=== PATIENT | female | born 1970 | race Two or more races ===

== ENCOUNTER 2017-04-14 18:06 | Emergency (ER) | payer MEDICAID ==
[~2017-04-14] VITALS: Ht 134.6 cm; Wt 127.9 kg
[2017-04-14] MEDS ORDERED: Morphine Sulfate 2mg/ml Inj IVP ONE (18:15)
--- NOTE | 2017-04-14 18:20 | Emergency Room Report ---
History of Present Illness General Chief Complaint: Dyspnea/Respdistress Source: Patient Present Illness HPI Patient presents with chest pain. She feels it is substernal. Radiate somewhat towards her back. It started yesterday. Somewhat pleuritic. She denies any productive cough. Has dyspnea on exertion. Has risk factors of hypertension and diabetes. She does not smoke. She did not take any medication for this pain. Pain 5/10, pressure. She is under a lot of stress at this time. She has asked her MD for medicine for stress and he has stated he can't help. No SI or HI. She is not being treated with antihypertensives. No fevers, NVD, dysuria, rashes, joint pain. Slight headache. Allergies: Coded Allergies: No Known Allergies (Unverified , 04/14/17) Patient History Past Medical History: see triage record Social History: Denies: smoking Social History Narrative with family Reviewed Nursing Documentation: PMH: Agreed, PSxH: Agreed Nursing Documentation-PMH Hx Diabetes: Yes Review of Systems All Other Systems: negative except mentioned in HPI Physical Exam Vital Signs Date Time Temp Pulse Resp B/P Pulse Ox O2 Delivery O2 Flow Rate FiO2 04/14/17 18:09 98.6 94 17 185/150 98 Room Air Sp02 EP Interpretation: reviewed, normal General Appearance: well appearing, no apparent distress, GCS 15 Head: normocephalic Eyes: bilateral eye PERRL, bilateral eye normal inspection ENT: moist mucus membranes Neck: supple Respiratory: lungs clear, normal breath sounds Cardiovascular #1: regular rate, rhythm Cardiovascular #2: 2+ radial (R) Gastrointestinal: normal inspection, normal bowel sounds, non tender, no mass, non-distended Musculoskeletal: back normal, gait/station normal, normal range of motion Neurologic: alert, oriented x3, grossly normal Psychiatric: depressed affect - tearful Skin: normal inspection, warm/dry Medical Decision Making Diagnostic Impression: Primary Impression: Chest pain Qualified Codes: R07.9 - Chest pain, unspecified Additional Impressions: Dyspnea Qualified Codes: R06.00 - Dyspnea, unspecified Depression Qualified Codes: F32.9 - Major depressive disorder, single episode, unspecified Labile hypertension ER Course Patient presents with chest pain shortness of breath. Risk factors of diabetes and hypertension. We need to exclude acute myocardial infarction, acute coronary syndrome. In addition to that an x-ray will be obtained to exclude a pulmonary infection. No wheezes at this time. Patient is under stress. The patient will be given aspirin and a small dose of morphine. Cardiac observation be undertaken. Initial BP quite high. EKG unremarkable. CXR normal. Labs with normal troponin, slight leukocytosis, elevated glucose. Patient improved with treatment. Initially, I was going to give clonidine, but BP improved without any direct treatment. Discussed need for re-eval by PMD. Patient stable for outpatient and treatment. Laboratory Tests Test 04/14/17 18:30 04/14/17 19:07 White Blood Count 13.8 K/UL (4.8-10.8) H Red Blood Count 4.31 M/UL (4.20-5.40) Hemoglobin 10.6 G/DL (12.0-16.0) L Hematocrit 32.8 % (37.0-47.0) L Mean Corpuscular Volume 76 FL (80-99) L Mean Corpuscular Hemoglobin 24.5 PG (27.0-31.0) L Mean Corpuscular Hemoglobin Concent 32.3 G/DL (32.0-36.0) Red Cell Distribution Width 14.9 % (11.6-14.8) H Platelet Count 502 K/UL (150-450) H Mean Platelet Volume 5.7 FL (6.5-10.1) L Neutrophils (%) (Auto) 71.6 % (45.0-75.0) Lymphocytes (%) (Auto) 20.8 % (20.0-45.0) Monocytes (%) (Auto) 5.4 % (1.0-10.0) Eosinophils (%) (Auto) 1.7 % (0.0-3.0) Basophils (%) (Auto) 0.6 % (0.0-2.0) Sodium Level 139 mEQ/L (135-145) Potassium Level 3.8 mEQ/L (3.4-4.9) Chloride Level 98 mEQ/L (98-107) Carbon Dioxide Level 24 mEQ/L (20-30) Anion Gap 17 (5-15) H Blood Urea Nitrogen 7 mg/dL (7-23) Creatinine 0.6 mg/dL (0.5-0.9) Estimate Glomerular Filtration Rate > 60 mL/min (>60) Glucose Level 253 mg/dL (74-106) H Calcium Level 9.2 mg/dL (8.6-10.2) Total Bilirubin < 0.2 mg/dL (0.0-1.2) Aspartate Amino Transferase (AST) 24 U/L (5-40) Alanine Aminotransferase (ALT) 17 U/L (3-33) Alkaline Phosphatase 129 U/L (35-104) H Total Creatine Kinase 59 U/L (26-140) Troponin I < 0.30 ng/mL (<=0.30) Pro-B-Type Natriuretic Peptide 42 pg/mL (0-125) Total Protein 7.9 g/dL (6.6-8.7) Albumin 4.4 g/dL (3.5-5.2) Globulin 3.5 g/dL Albumin/Globulin Ratio 1.2 (1.0-2.7) Urine Color Pale yellow Urine Appearance Slightly cloudy Urine pH 6.5 (4.5-8.0) Urine Specific [place] 1.010 (1.005-1.035) Urine Protein 3+ (NEGATIVE) H Urine Glucose (UA) Negative (NEGATIVE) Urine Ketones Negative (NEGATIVE) Urine Occult Blood Negative (NEGATIVE) Urine Nitrite Negative (NEGATIVE) Urine Bilirubin Negative (NEGATIVE) Urine Urobilinogen Normal MG/DL (0.0-1.0) Urine Leukocyte Esterase Negative (NEGATIVE) Urine RBC 0 /HPF (0 - 2) Urine WBC 0-2 /HPF (0 - 2) Urine Squamous Epithelial Cells Many /LPF (NONE/OCC) H Urine Bacteria Occasional /HPF (NONE) EKG Diagnostic Results Rate: normal Rhythm: NSR ST Segments: no acute changes Rhythm Strip Diag. Results EP Interpretation: yes Rhythm: NSR, no PVC's, no ectopy Chest X-Ray Diagnostic Results Chest X-Ray Diagnostic Results : Chest X-Ray Ordered: Yes # of Views/Limited/Complete: 1 View Indication: Chest Pain EP Interpretation: Yes Interpretation: no consolidation, no effusion, no pneumothorax, no acute cardiopulmonary disease Impression: No acute disease Interpreting ER Provider: signed Hardeep Vizcaino MD Last Vital Signs Date Time Temp Pulse Resp B/P Pulse Ox O2 Delivery O2 Flow Rate FiO2 04/14/17 21:56 98.6 87 21 147/101 99 Room Air Status: improved Disposition: HOME, SELF-CARE Condition: Improved Scripts Ibuprofen* (MOTRIN*) 600 Mg Tablet 600 MG ORAL Q6H Y for For Pain, #20 TAB Prov: Hardeep Vizcaino M.D. 04/14/17 Lorazepam* (ATIVAN*) 0.5 Mg Tablet 0.5 MG ORAL THREE TIMES A DAY Y for anxiety/dyspnea, #6 TAB Prov: Hardeep Vizcaino M.D. 04/14/17 Lisinopril (LISINOPRIL*) 5 Mg Tablet 5 MG ORAL DAILY, #30 TAB Prov: Hardeep Vizcaino M.D. 04/14/17 Hardeep Vizcaino M.D. Apr 14, 2017 18:20
[2017-04-14] MEDS ORDERED: FORTAMET500 MG PO (18:24)
[2017-04-14] MEDS ORDERED: FORTAMET1000 MG PO (18:24)
[2017-04-14] MEDS ORDERED: GLYBURIDE5 MG PO (18:24)
[2017-04-14 18:31] VITALS: BP 224/130
[2017-04-14 18:50] LABS: BASOPHILS % (AUTO) 0.6 % (0.0-2.0); EOSINOPHILS % (AUTO) 1.7 % (0.0-3.0); LYMPHOCYTES % (AUTO) 20.8 % (20.0-45.0); MEAN CORPUSCULAR HEMOGLOBIN 24.5 PG (27.0-31.0); MEAN CORPUSCULAR HGB CONC 32.3 G/DL (32.0-36.0); MEAN CORPUSCULAR VOLUME 76 FL (80-99); MEAN PLATELET VOLUME 5.7 FL (6.5-10.1); MONOCYTES % (AUTO) 5.4 % (1.0-10.0); NEUTROPHILS % (AUTO) 71.6 % (45.0-75.0); PLATELET COUNT 502 K/UL (150-450); RED BLOOD COUNT 4.31 M/UL (4.20-5.40); RED CELL DISTRIBUTION WIDTH 14.9 % (11.6-14.8); WHITE BLOOD COUNT 13.8 K/UL (4.8-10.8)
[2017-04-14] MEDS ORDERED: cloNIDine 0.2mg Tab ORAL ONE (19:00)
[2017-04-14 19:06] LABS: TROPONIN I < 0.30 ng/mL (<=0.30)
[2017-04-14 19:08] VITALS: BP 166/63
[2017-04-14 19:08] LABS: ALANINE AMINOTRANSFERASE 17 U/L (3-33); ALBUMIN/GLOBULIN RATIO 1.2 (1.0-2.7); ANION GAP 17 (5-15); ASPARTATE AMINO TRANSFERASE 24 U/L (5-40); CALCIUM 9.2 mg/dL (8.6-10.2); CARBON DIOXIDE 24 mEQ/L (20-30); CHLORIDE 98 mEQ/L (98-107); CREATININE 0.6 mg/dL (0.5-0.9); GLOMERULAR FILTRATION RATE > 60 mL/min (>60); HEMOLYSIS 2; POTASSIUM 3.8 mEQ/L (3.4-4.9); SODIUM 139 mEQ/L (135-145); TOTAL PROTEIN 7.9 g/dL (6.6-8.7)
[2017-04-14 19:29] LABS: APPEARANCE,URINE SLIGHTLY CLOUDY; KETONES,URINE NEGATIVE (NEGATIVE); LEUKOCYTE ESTERASE ,URINE NEGATIVE (NEGATIVE); NITRITE,URINE NEGATIVE (NEGATIVE); PH,URINE 6.5 (4.5-8.0); PROTEIN,URINE 3+ (NEGATIVE); UROBILINOGEN,URINE NORMAL MG/DL (0.0-1.0)
[2017-04-14 19:34] LABS: BACTERIA,URINE OCCASIONAL /HPF; RBC,URINE 0 /HPF (0 - 2); SQUAMOUS EPITHELIAL CELL,UR MANY /LPF (NONE/OCC); WBC,URINE 0-2 /HPF (0 - 2)
[2017-04-14 21:36] VITALS: BP 147/101
[2017-04-14] MEDS ORDERED: LISINOPRIL5 MG ORAL (21:45)
[2017-04-14] MEDS ORDERED: ATIVAN0.5 MG ORAL (21:45)
[2017-04-14] MEDS ORDERED: IBUPROFEN600 MG ORAL (21:45)
[2017-04-14 21:56] VITALS: BP 147/101
--- NOTE | 2017-04-15 09:50 | Diagnostic Imaging Report ---
Indication: Chest pain Technique: Continuous helical transaxial imaging of the chest was obtained from the thoracic inlet to the upper abdomen. No intravenous contrast was administered. Coronal 2-D reformats were also obtained. Total Dose length Product (DLP): [address] Dose Index Volume (CTDIvol): 30 mGy Comparison: none Findings: There is some limitation due to body habitus. Image quality is somewhat degraded. Trace calcification of aorta demonstrated. Cardiomegaly is present. Lungs are clear. The mediastinum is grossly unremarkable. Small hiatal hernia is present. The liver is probably low in attenuation. There is considerable artifact. Cholecystectomy clips noted. Mild, marginal vertebral endplate spurs noted in the lower thoracic spine. Impression: Limited evaluation due to body habitus. No acute findings in the chest identified. Status post cholecystectomy. Probable fatty liver. The CT scanner at [facility] is accredited by the [employer] and the scans are performed using dose optimization techniques as appropriate to a performed exam including Automatic Exposure control.
--- NOTE | 2017-04-16 08:44 | Diagnostic Imaging Report ---
Indication: Chest pain Comparison: None A single view chest radiograph was obtained. Findings: No definite infiltrate or pulmonary vascular congestion identified. The heart is enlarged. The bones are osteopenic. Impression: No acute disease
--- NOTE | 2017-04-18 21:23 | Cardiology Report ---
APPROVED REPORT EKG Measurement Heart [id number] Normal sinus rhythm Normal ECG
== END 2017-04-14 21:56 | disposition home or self-care (01) ==
LOC: EMR 20:37
DX: R07.9 Chest pain, unspecified (principal); R06.00 Dyspnea, unspecified; F32.9 Major depressive disorder, single episode, unspecified; I10 Essential (primary) hypertension; E11.9 Type 2 diabetes mellitus without complications; Z90.49 Acquired absence of other specified parts of digestive tract; K76.0 Fatty (change of) liver, not elsewhere classified; K44.9 Diaphragmatic hernia without obstruction or gangrene; I51.7 Cardiomegaly
CPT/HCPCS: 36415; 71010; 71250; 80053; 81003; 82550; 82962; 83880; 84484; 85025; 93005; 96374; 96375; 99284; J2270; J2405

== ENCOUNTER 2018-02-10 12:12 | Inpatient (IN) | payer MEDICAID ==
[~2018-02-10] VITALS: Ht 152.4 cm; Wt 129.7 kg
[~2018-02-10 12:12] MED LIST: ATIVAN0.5 MG ORAL; FORTAMET1000 MG PO; FORTAMET500 MG PO; GLYBURIDE5 MG PO; IBUPROFEN600 MG ORAL; LISINOPRIL5 MG ORAL
[2018-02-10 12:45] VITALS: BP 144/77
[2018-02-10] MEDS ORDERED: Isovue-300 100ml vial INJ PRN (13:00)
[2018-02-10 13:01] LABS: BASOPHILS % (AUTO) 1.9 % (0.0-2.0); EOSINOPHILS % (AUTO) 0.6 % (0.0-3.0); HEMATOCRIT 34.6 % (37.0-47.0); HEMOGLOBIN 9.8 G/DL (12.0-16.0); LYMPHOCYTES % (AUTO) 24.2 % (20.0-45.0); MEAN CORPUSCULAR VOLUME 70 FL (80-99); MONOCYTES % (AUTO) 4.7 % (1.0-10.0); NEUTROPHILS % (AUTO) 68.8 % (45.0-75.0); PLATELET COUNT 335 K/UL (150-450); RED BLOOD COUNT 4.91 M/UL (4.20-5.40); RED CELL DISTRIBUTION WIDTH 18.5 % (11.6-14.8); WHITE BLOOD COUNT 8.5 K/UL (4.8-10.8)
[2018-02-10 13:24] LABS: ANION GAP 6 mmol/L (5-15); BLOOD UREA NITROGEN 7 mg/dL (7-18); CARBON DIOXIDE 26 MMOL/L (21-32); CHLORIDE 106 MMOL/L (98-107); CREATININE 0.8 MG/DL (0.55-1.30); POTASSIUM 3.8 MMOL/L (3.5-5.1); SODIUM 138 MMOL/L (136-145)
[2018-02-10 13:28] LABS: ALANINE AMINOTRANSFERASE 22 U/L (12-78); ALBUMIN 3.7 G/DL (3.4-5.0); ALKALINE PHOSPHATASE 81 U/L (46-116); ASPARTATE AMINO TRANSFERASE 18 U/L (15-37); BILIRUBIN,TOTAL 0.6 MG/DL (0.2-1.0)
[2018-02-10] MEDS ORDERED: Morphine Sulfate 4mg/ml Inj IVP ONE ×2 (13:30→16:00)
[2018-02-10 13:32] LABS: APPEARANCE,URINE CLEAR; BILIRUBIN, URINE NEGATIVE (NEGATIVE); COLOR,URINE PALE YELLOW; GLUCOSE, URINE (UA) 2+ (NEGATIVE); KETONES,URINE NEGATIVE (NEGATIVE); LEUKOCYTE ESTERASE ,URINE NEGATIVE (NEGATIVE); NITRITE,URINE NEGATIVE (NEGATIVE); PH,URINE 8 (4.5-8.0); PROTEIN,URINE 2+ (NEGATIVE); UROBILINOGEN,URINE NORMAL MG/DL (0.0-1.0)
--- NOTE | 2018-02-10 14:25 | Emergency Room Report ---
History of Present Illness General Chief Complaint: Abdominal Pain Source: Patient (Daria Gallagher DO) Present Illness HPI This patient complains of abdominal pain in her right lower abdomen. She states that the pain started last night has become more progressive and worse. She has had nausea but no vomiting. She denies fever or chills. She denies dysuria or hematuria. She has no other complaints. (Daria Gallagher DO) Allergies: Coded Allergies: No Known Allergies (Unverified , 04/14/17) Patient History Past Medical History: see triage record, DM Social History: Denies: smoking, alcohol use, drug use Reviewed Nursing Documentation: PMH: Agreed; PSxH: Agreed (Daria Gallagher DO) Nursing Documentation-PMH Past Medical History: No History, Except For Hx Diabetes: Yes (Daria Gallagher DO) Review of Systems All Other Systems: negative except mentioned in HPI (Daria Gallagher DO) Physical Exam Vital Signs Date Time Temp Pulse Resp B/P (MAP) Pulse Ox O2 Delivery O2 Flow Rate FiO2 02/10/18 12:18 95 22 144/77 95 Room Air 02/10/18 12:45 98.8 98.8 Sp02 EP Interpretation: reviewed, normal General Appearance: no apparent distress, alert, GCS 15, non-toxic Head: normocephalic, atraumatic Eyes: bilateral eye normal inspection, bilateral eye PERRL ENT: hearing grossly normal, normal pharynx, no angioedema, normal voice Neck: full range of motion, supple/symm/no masses Respiratory: chest non-tender, lungs clear, normal breath sounds, speaking full sentences Cardiovascular #1: regular rate, rhythm, no edema Gastrointestinal: normal bowel sounds, soft, non-distended, no guarding, no rebound, tenderness - TTP in the RLQ Rectal: deferred Musculoskeletal: back normal, gait/station normal, normal range of motion, non- tender Neurologic: alert, oriented x3, responsive, motor strength/tone normal, sensory intact, speech normal Psychiatric: judgement/insight normal, memory normal, mood/affect normal, no suicidal/homicidal ideation Skin: normal color, no rash, warm/dry, well hydrated (Daria Gallagher DO) Medical Decision Making Diagnostic Impression: Primary Impression: Appendicitis ER Course This patient has appendicitis. The patient is admitted for emergency surgery and surgical treatment by general surgery. The patient did remain stable here in the emergency department. She is admitted to the medical surgical floor. Laboratory Tests Test 02/10/18 12:40 02/10/18 13:00 White Blood Count 8.5 K/UL (4.8-10.8) Red Blood Count 4.91 M/UL (4.20-5.40) Hemoglobin 9.8 G/DL (12.0-16.0) L Hematocrit 34.6 % (37.0-47.0) L Mean Corpuscular Volume 70 FL (80-99) L Mean Corpuscular Hemoglobin 19.9 PG (27.0-31.0) L Mean Corpuscular Hemoglobin Concent 28.2 G/DL (32.0-36.0) L Red Cell Distribution Width 18.5 % (11.6-14.8) H Platelet Count 335 K/UL (150-450) Mean Platelet Volume 7.3 FL (6.5-10.1) Neutrophils (%) (Auto) 68.8 % (45.0-75.0) Lymphocytes (%) (Auto) 24.2 % (20.0-45.0) Monocytes (%) (Auto) 4.7 % (1.0-10.0) Eosinophils (%) (Auto) 0.6 % (0.0-3.0) Basophils (%) (Auto) 1.9 % (0.0-2.0) Sodium Level 138 MMOL/L (136-145) Potassium Level 3.8 MMOL/L (3.5-5.1) Chloride Level 106 MMOL/L (98-107) Carbon Dioxide Level 26 MMOL/L (21-32) Anion Gap 6 mmol/L (5-15) Blood Urea Nitrogen 7 mg/dL (7-18) Creatinine 0.8 MG/DL (0.55-1.30) Estimate Glomerular Filtration Rate > 60 mL/min (>60) Glucose Level 89 MG/DL (74-106) Calcium Level 9.0 MG/DL (8.5-10.1) Total Bilirubin 0.6 MG/DL (0.2-1.0) Aspartate Amino Transferase (AST) 18 U/L (15-37) Alanine Aminotransferase (ALT) 22 U/L (12-78) Alkaline Phosphatase 81 U/L (46-116) Total Protein 7.5 G/DL (6.4-8.2) Albumin 3.7 G/DL (3.4-5.0) Globulin 3.8 g/dL Albumin/Globulin Ratio 1.0 (1.0-2.7) Lipase 100 U/L (73-393) Urine Color Pale yellow Urine Appearance Clear Urine pH 8 (4.5-8.0) Urine Specific [place] 1.015 (1.005-1.035) Urine Protein 2+ (NEGATIVE) H Urine Glucose (UA) 2+ (NEGATIVE) H Urine Ketones Negative (NEGATIVE) Urine Occult Blood Negative (NEGATIVE) Urine Nitrite Negative (NEGATIVE) Urine Bilirubin Negative (NEGATIVE) Urine Urobilinogen Normal MG/DL (0.0-1.0) Urine Leukocyte Esterase Negative (NEGATIVE) Urine RBC 0-2 /HPF (0 - 2) Urine WBC 0-2 /HPF (0 - 2) Urine Squamous Epithelial Cells Many /LPF (NONE/OCC) H Urine Bacteria Occasional /HPF (NONE) Urine HCG, Qualitative Negative (NEGATIVE) (Daria Gallagher DO) ER Course Please refer to the initial note for the history exam and presentation Patient was pending CT imaging at this time required repeat doses of pain medication CT report gives findings of concerning early appendicitis including focal inflammatory stranding around the appendix Patient is provided with IV antibiotics IV fluids Gen. surgery is contacted Patient has been nothing by mouth since last night and requires further inpatient care Labs Test 02/10/18 12:40 02/10/18 13:00 White Blood Count 8.5 K/UL (4.8-10.8) Red Blood Count 4.91 M/UL (4.20-5.40) Hemoglobin 9.8 G/DL (12.0-16.0) Hematocrit 34.6 % (37.0-47.0) Mean Corpuscular Volume 70 FL (80-99) Mean Corpuscular Hemoglobin 19.9 PG (27.0-31.0) Mean Corpuscular Hemoglobin Concent 28.2 G/DL (32.0-36.0) Red Cell Distribution Width 18.5 % (11.6-14.8) Platelet Count 335 K/UL (150-450) Mean Platelet Volume 7.3 FL (6.5-10.1) Neutrophils (%) (Auto) 68.8 % (45.0-75.0) Lymphocytes (%) (Auto) 24.2 % (20.0-45.0) Monocytes (%) (Auto) 4.7 % (1.0-10.0) Eosinophils (%) (Auto) 0.6 % (0.0-3.0) Basophils (%) (Auto) 1.9 % (0.0-2.0) Sodium Level 138 MMOL/L (136-145) Potassium Level 3.8 MMOL/L (3.5-5.1) Chloride Level 106 MMOL/L (98-107) Carbon Dioxide Level 26 MMOL/L (21-32) Anion Gap 6 mmol/L (5-15) Blood Urea Nitrogen 7 mg/dL (7-18) Creatinine 0.8 MG/DL (0.55-1.30) Estimat Glomerular Filtration Rate > 60 mL/min (>60) Glucose Level 89 MG/DL (74-106) Calcium Level 9.0 MG/DL (8.5-10.1) Total Bilirubin 0.6 MG/DL (0.2-1.0) Aspartate Amino Transf (AST/SGOT) 18 U/L (15-37) Alanine Aminotransferase (ALT/SGPT) 22 U/L (12-78) Alkaline Phosphatase 81 U/L (46-116) Total Protein 7.5 G/DL (6.4-8.2) Albumin 3.7 G/DL (3.4-5.0) Globulin 3.8 g/dL Albumin/Globulin Ratio 1.0 (1.0-2.7) Lipase 100 U/L (73-393) Urine Color Pale yellow Urine Appearance Clear Urine pH 8 (4.5-8.0) Urine Specific [place] 1.015 (1.005-1.035) Urine Protein 2+ (NEGATIVE) Urine Glucose (UA) 2+ (NEGATIVE) Urine Ketones Negative (NEGATIVE) Urine Occult Blood Negative (NEGATIVE) Urine Nitrite Negative (NEGATIVE) Urine Bilirubin Negative (NEGATIVE) Urine Urobilinogen Normal MG/DL (0.0-1.0) Urine Leukocyte Esterase Negative (NEGATIVE) Urine RBC 0-2 /HPF (0 - 2) Urine WBC 0-2 /HPF (0 - 2) Urine Squamous Epithelial Cells Many /LPF (NONE/OCC) Urine Bacteria Occasional /HPF (NONE) Urine HCG, Qualitative Negative (NEGATIVE) (Sara Pelayo DO) Rhythm Strip Diag. Results EP Interpretation: yes Rate: 77 Rhythm: NSR, no PVC's, no ectopy (Sara Pelayo DO) CT/MRI/US Diagnostic Results CT/MRI/US Diagnostic Results : Imaging Test Ordered: CT abd/pelvis Impression Inflammatory stranding surrounding the tip of the appendix which is enlarged to approximately 10 mm. Findings are suggestive of an early/tip appendicitis as further detailed above. Please note the appendix courses midline and the tip is located above the bladder. Correlate for suprapubic tenderness. No evidence of associated bowel obstruction, perforation or abscess formation. Inflammatory change adjacent to the superior aspect of the bladder likely secondary to the above-described appendiceal inflammation. Correlate with urinalysis to exclude the possibility of a concurrent cystitis. Mild cardiomegaly. Probable hepatic steatosis. Status post cholecystectomy. (Daria Gallagher DO) CT/MRI/US Diagnostic Results : Impression CT abdomen pelvisIMPRESSION: Inflammatory stranding surrounding the tip of the appendix which is enlarged to approximately 10 mm. Findings are suggestive of an early/tip appendicitis as further detailed above. Please note the appendix courses midline and the tip is located above the bladder. Correlate for suprapubic tenderness. No evidence of associated bowel obstruction, perforation or abscess formation. Inflammatory change adjacent to the superior aspect of the bladder likely secondary to the above-described appendiceal inflammation. Correlate with urinalysis to exclude the possibility of a concurrent cystitis. Mild cardiomegaly. Probable hepatic steatosis. Status post cholecystectomy. (Sara Pelayo DO) Last Vital Signs Date Time Temp Pulse Resp B/P (MAP) Pulse Ox O2 Delivery O2 Flow Rate FiO2 02/10/18 13:34 98.8 02/10/18 12:45 22 144/77 95 Room Air 02/10/18 12:18 95 (Daria Gallagher DO) Status: improved (Sara Pelayo DO) Disposition: ADMITTED INPATIENT Condition: Serious Referrals: [facility],REFERRING (PCP) Daria Gallagher DO Feb 10, 2018 14:25 Sara Pelayo DO Feb 10, 2018 17:16
--- NOTE | 2018-02-10 16:27 | Diagnostic Imaging Report ---
Indication: Abdominal pain Technique: CT of the abdomen and pelvis utilizing automated exposure control with intravenous contrast. Venous scanning performed. Axial, sagittal and coronal reformats presented. CT dose: Total DLP 1027.46 mGycm; CTDI vol 19.75 mGy Comparison: None Findings: There are mild dependent atelectatic changes noted in the lung bases. Heart is enlarged. No pericardial effusion. Probable hepatic steatosis. Liver contour appears smooth. No focal hepatic mass lesion is appreciated on this single phase study. The patient is noted to be status post cholecystectomy. No appreciable biliary ductal dilatation. Hepatic veins and portal veins appear patent. Spleen, adrenal glands and pancreas are unremarkable. The kidneys enhance symmetrically. There is no evidence of urinary tract stone or hydronephrosis bilaterally. The uterus is unremarkable in appearance. Some inflammatory stranding is noted adjacent to the superior aspect of the bladder. There is focal inflammatory stranding surrounding the appendix, most pronounced adjacent to the tip of the appendix which sits in the midline lower abdomen just superior to the bladder (series 5 image #29; series 6 image [id number]). The tip of the appendix is enlarged, measuring up to 10 mm in diameter. The base is more normal in caliber. There may be a small appendicolith in the distal appendix. There is no evidence of associated bowel obstruction, adjacent fluid collection or evidence of free intraperitoneal air suggests perforation. No pathologically enlarged lymphadenopathy. Abdominal aorta normal in caliber. There are mild degenerative changes of the spine. No acute osseous abnormality is seen. There is a tiny fat-containing umbilical hernia. There is no free intraperitoneal air or fluid. IMPRESSION: Inflammatory stranding surrounding the tip of the appendix which is enlarged to approximately 10 mm. Findings are suggestive of an early/tip appendicitis as further detailed above. Please note the appendix courses midline and the tip is located above the bladder. Correlate for suprapubic tenderness. No evidence of associated bowel obstruction, perforation or abscess formation. Inflammatory change adjacent to the superior aspect of the bladder likely secondary to the above-described appendiceal inflammation. Correlate with urinalysis to exclude the possibility of a concurrent cystitis. Mild cardiomegaly. Probable hepatic steatosis. Status post cholecystectomy. The CT scanner at [facility] is accredited by the [employer] and the scans are performed using protocols designed to limit radiation exposure to as low as reasonably achievable to attain images of sufficient resolution adequate for diagnostic evaluation.
[2018-02-10] MEDS ORDERED: Morphine Sulfate 10mg/ml Inj IVP ONE (17:15)
[2018-02-10] MEDS ORDERED: ACETAMINOPHEN325 M1 ORAL (17:27)
[2018-02-10] MEDS ORDERED: METFORMIN HCL850 M1 ORAL (17:27)
[2018-02-10] MEDS ORDERED: METHOCARBAMOL750 MG ORAL (17:27)
[2018-02-10] MEDS ORDERED: Midazolam 2mg/2ml Inj ONE (17:58)
[2018-02-10] MEDS ORDERED: fentaNYL 100 mcg/2 mL IV ONE (17:59)
[2018-02-10] MEDS ORDERED: Bupivacaine 0.25% Inj 30ml INJ ONE (18:03)
[2018-02-10] MEDS ORDERED: Bacitracin 50000 Units Vial ONE (18:03)
[2018-02-10] MEDS ORDERED: Propofol 200mg/20ml IV ONE ×3 (18:04→19:38)
[2018-02-10] MEDS ORDERED: Sodium Chloride 10ml vial INJ ONE (18:04)
[2018-02-10] MEDS ORDERED: Lidocaine 1% MPF 10mg/ml 5ml ONE ×2 (18:04→19:44)
[2018-02-10] MEDS ORDERED: Succinylcholine 20mg/ml 10ml vial ONE (18:18)
--- NOTE | 2018-02-10 18:18 | Pre-Procedure Note/Attestation ---
Pre-Procedure Note/Attestation Complete Prior to Procedure Planned Procedure: not applicable Procedure Narrative: Laparoscopic appendectomy possible open appendectomy Indications for Procedure Pre-Operative Diagnosis: Acute Appendicitis Attestation I attest that I discussed the nature of the procedure; its benefits; risks and complications; and alternatives (and the risks and benefits of such alternatives ), prior to the procedure, with the patient (or the patient's legal sales and service representative). I attest that, if there was a reasonable possibility of needing a blood transfusion, the patient (or the patient's legal sales and service representative) was given the [facility] standardized written summary, pursuant to the Kimo Trish Blood Safety Act ([place] Health and Safety Code # 1645, as amended). I attest that I re-evaluated the patient just prior to the surgery and that there has been no change in the patient's H&P, except as documented below: Dante Huitron MD Feb 10, 2018 18:18
[2018-02-10] MEDS ORDERED: NS Irrig 1000ml ONE (18:30)
[2018-02-10] MEDS ORDERED: LR 1000ml ONE (18:30)
[2018-02-10] MEDS ORDERED: Sterile Water Irrig 1000ml IRRIG ONE (18:30)
--- NOTE | 2018-02-10 19:00 | History and Physical Report ---
DATE OF ADMISSION: 02/10/2018 PREOPERATIVE CONSULTATION CONSULTING PHYSICIAN: Dante Huitron M.D. REQUESTING PHYSICIAN: Dr. Pelayo in the emergency room. REASON FOR CONSULTATION: Abdominal pain. HISTORY OF PRESENT ILLNESS: This is a 47-year-old blood female who presented to emergency room complaining of abdominal pain since yesterday. The pain is located basically on the lower abdomen and has been associated with nausea and vomiting. She denied any fever. She has had a mild cough and she complains of some mild dysuria. She denies any previous history of similar pain. PAST MEDICAL HISTORY: She denies allergies, asthma, cardiac and renal diseases. She has a history of diabetes and hypertension. Surgeries include laparoscopy and cholecystectomy. MEDICATIONS: Please see the medicine reconciliation form. SOCIAL HISTORY: The patient is a 47-year-old, female, who is single, mother of 4 children, unemployed and denies smoking and drinking. REVIEW OF SYSTEMS: Noncontributory. PHYSICAL EXAMINATION: GENERAL: The patient appeared to be a well-developed, well-nourished, morbidly obese, 47-year-old female, lying on the gurney, complaining of abdominal pain. HEENT: Head is normocephalic and atraumatic. Eyes, pupils equal, round, and reactive to light. Mouth is clear. NECK: There is no palpable thyromegaly or adenopathy. CHEST: Clear to auscultation and percussion. HEART: There is no gallop or murmur. S1 and S2 are within normal limits. ABDOMEN: Obese and pendulous, soft with tenderness mainly in the lower abdomen, more pronounced at the right lower quadrant. GENITAL: Deferred. EXTREMITIES: Within normal limits. LABORATORY AND DIAGNOSTIC DATA: CBC has shown a WBC of 8500 with normal differential. Chemistry is within normal limits, even the blood glucose is 89. Urine is normal. CT scan of the abdomen has been interpreted as acute appendicitis. ASSESSMENT: Acute appendicitis. PLAN: After rehydration, the patient will undergo a laparoscopy appendectomy and possible open appendectomy. The risks and benefits have been explained to her. She understood and granted a consent. Dante Huitron M.D. DR: CRISTO JOB#: [id number] CC: MIKEY
[2018-02-10] MEDS ORDERED: Zemuron 50mg/5ml Inj IV ONE (19:09)
[2018-02-10] MEDS ORDERED: Piperacillin/Tazobactam 3.375 GM in D5W 110 ML IVPB ONE (19:30)
[2018-02-10] MEDS ORDERED: Neostigmine 1mg/ml 10ml Inj ONE (19:38)
[2018-02-10] MEDS ORDERED: Glycopyrrolate 0.2mg/ml 1ml Vial ONE (19:38)
[2018-02-10] MEDS ORDERED: Metoprolol 5mg/5ml Inj ONE (19:38)
--- NOTE | 2018-02-10 19:51 | Brief Operative Note ---
Immediate Post Operative Note Operative Note Pre-op Diagnosis: Acute Appendicitis Procedure: Lap Appy Post-op Diagnosis: acute appy Surgeon: MD Jaden [employer] Laborer: none Anesthesiologist: Dr. Anguiano Anesthesia: general Specimen: yes Complications: none Condition: stable Fluids: per anesthesialogist Estimated Blood Loss: minimal Drains: none Implant(s) used?: No Dante Huitron MD Feb 10, 2018 19:51
[2018-02-10] MEDS ORDERED: fentaNYL 100 mcg/2 mL IV PRN (19:55)
[2018-02-10] MEDS ORDERED: LR 1000ml 1,000 ML IVLG SCH (20:00)
[2018-02-10] MEDS ORDERED: Meperidine 50mg/ml Inj(FOR RIGORS ONLY) IVP ONE (20:00)
[2018-02-10] MEDS ORDERED: Ketorolac 30mg Inj IV PRN (20:00)
[2018-02-10 20:20] VITALS: BP_SYST 123; BP_SYST 144; BP_DIAS 72; BP_DIAS 77
--- NOTE | 2018-02-10 20:28 | Anethesia Preoperative Eval ---
Anesthesia Pre-op PMH/ROS General Date of Evaluation: Feb 10, 2018 Time of Evaluation: 18:30 Anesthesiologist: Leon ASA Score: ASA 3 Mallampati Score Class I : Soft palate, uvula, fauces, pillars visible Class II: Soft palate, uvula, fauces visible Class III: Soft palate, base of uvula visible Class IV: Only hard plate visible Mallampati Classification: Class IV Surgeon: Elana Diagnosis: Acute appendicitis Surgical Procedure: Lap Appy Allergies: Coded Allergies: No Known Allergies (Unverified , 04/14/17) Past Medical History Cardiovascular: Reports: HTN; Denies: CAD, NM, valve dz, arrhythmia, other Pulmonary: Denies: asthma, COPD, MICHAEL, other Gastrointestinal/Genitourinary: Denies: GERD, CRI, ESRD, other Neurologic/Psychiatric: Denies: dementia, CVA, depression/anxiety, TIA, other Endocrine: Reports: DM; Denies: hypothyroidism, steroids, other HEENT: Denies: cataract (L), cataract (R), glaucoma, [place] (L), [place] (R), other Hematology/Immune: Denies: anemia, DVT, bleeding disorder, other Musculoskeletal/Integumentary: Denies: OA, RA, DJD, DDD, edema, other Other: obesity PMH Narrative: HTN, DM, morbid obesity PSxH Narrative: Cholecystectomy Anesthesia Pre-op Phys. Exam Physician Exam Last Vital Signs Date Time Temp Pulse Resp B/P (MAP) Pulse Ox O2 Delivery O2 Flow Rate FiO2 02/10/18 17:23 98.8 02/10/18 12:45 22 144/77 95 Room Air 02/10/18 12:18 95 Constitutional: NAD Neurologic: CN 2-12 intact Cardiovascular: RRR, no M/R/G Respiratory: CTA Gastrointestinal: S/NT/ND Airway Exam Mallampati Score: Class IV MO: full ROM: full Teeth: intact Anesthesia Pre-op A/P Labs Hematology Test 02/10/18 12:40 White Blood Count 8.5 K/UL (4.8-10.8) Red Blood Count 4.91 M/UL (4.20-5.40) Hemoglobin 9.8 G/DL (12.0-16.0) L Hematocrit 34.6 % (37.0-47.0) L Mean Corpuscular Volume 70 FL (80-99) L Mean Corpuscular Hemoglobin 19.9 PG (27.0-31.0) L Mean Corpuscular Hemoglobin Concent 28.2 G/DL (32.0-36.0) L Red Cell Distribution Width 18.5 % (11.6-14.8) H Platelet Count 335 K/UL (150-450) Mean Platelet Volume 7.3 FL (6.5-10.1) Neutrophils (%) (Auto) 68.8 % (45.0-75.0) Lymphocytes (%) (Auto) 24.2 % (20.0-45.0) Monocytes (%) (Auto) 4.7 % (1.0-10.0) Eosinophils (%) (Auto) 0.6 % (0.0-3.0) Basophils (%) (Auto) 1.9 % (0.0-2.0) Chemistry Test 02/10/18 12:40 Sodium Level 138 MMOL/L (136-145) Potassium Level 3.8 MMOL/L (3.5-5.1) Chloride Level 106 MMOL/L (98-107) Carbon Dioxide Level 26 MMOL/L (21-32) Anion Gap 6 mmol/L (5-15) Blood Urea Nitrogen 7 mg/dL (7-18) Creatinine 0.8 MG/DL (0.55-1.30) Estimat Glomerular Filtration Rate > 60 mL/min (>60) Glucose Level 89 MG/DL (74-106) Calcium Level 9.0 MG/DL (8.5-10.1) Total Bilirubin 0.6 MG/DL (0.2-1.0) Aspartate Amino Transf (AST/SGOT) 18 U/L (15-37) Alanine Aminotransferase (ALT/SGPT) 22 U/L (12-78) Alkaline Phosphatase 81 U/L (46-116) Total Protein 7.5 G/DL (6.4-8.2) Albumin 3.7 G/DL (3.4-5.0) Globulin 3.8 g/dL Albumin/Globulin Ratio 1.0 (1.0-2.7) Lipase 100 U/L (73-393) Urine Test Test 02/10/18 13:00 Urine HCG, Qualitative Negative (NEGATIVE) Risk Assessment & Plan Assessment: Acute appendicitis in a morbidly obese, airway class female Plan: MILAN Procious scope vs fiberoptic intubation Status Change Before Surgery: Yes Pre-Antibiotics Drug: Zosyn Given Within 1 Hr of Incision: Yes Time Given: 19:00 Kimo Quintero MD Feb 10, 2018 20:28
--- NOTE | 2018-02-10 20:37 | Immediate Post-Op Evaluation ---
Immediate Post-Op Evalulation Immediate Post-Op Evalulation Procedure: Lap appy Date of Evaluation: Feb 10, 2018 Time of Evaluation: 20:35 IV Fluids: 1000 Blood Pressure Systolic: 122 Blood Pressure Diastolic: 75 Pulse Rate: 104 Respiratory Rate: 22 O2 Sat by Pulse Oximetry: 100 Temperature (Fahrenheit): 99.3 Pain Score (1-10): 0 Nausea: No Vomiting: No Complications No complications. Stayed with patient in the OR until tidal volumes increased to 400...then extubated and taken to the ICU for observation overnight. Patient Status: awake, patent, extubated, none Hydration Status: adequate Drug: Zoxyn Given Within 1 Hr of Incision: Yes Time Given: 19:00 Kimo Quintero MD Feb 10, 2018 20:37
--- NOTE | 2018-02-10 21:15 | Operative Note - Dictated ---
DATE OF OPERATION: 02/10/2018 PREOPERATIVE DIAGNOSIS: Acute appendicitis. POSTOPERATIVE DIAGNOSIS: Acute appendicitis. OPERATION: Laparoscopic appendectomy. COMPLICATION: None. SURGEON: Dante Huitron M.D. INTERMODAL TRUCK DRIVER: None. ANESTHESIOLOGIST: Dr. Quintero. ANESTHESIA: General with endotracheal tube. INDICATION: This is a 47-year-old female, morbidly obese, presented to emergency room complaining of abdominal pain since yesterday. The pain was located at the lower abdomen associated with nausea and vomiting. Physical examination showed tenderness at the lower abdomen which was more pronounced at right lower quadrant. CBC showed normal WBC with normal differential. CAT scan of the abdomen was interpreted as acute appendicitis. DESCRIPTION OF PROCEDURE: The patient was placed supine on the operating table and after general anesthesia with endotracheal tube, the abdomen was properly prepped and draped. A small incision was given above the umbilicus through which a Veress needle was introduced into the intraperitoneal cavity. This cavity was insufflated up to 15 mmHg and then the Veress needle was removed and a 5 mm trocar was placed in the intraperitoneal cavity through the incision above the umbilicus. Laparoscope and camera was introduced into the intraperitoneal cavity through the trocar above the umbilicus. Under direct vision, a 5 mm trocar was placed at the suprapubic area and a 12 mm trocar was placed at the left lower quadrant of the abdomen. Initially, a rapid exploration was performed which showed extensive adhesion at the upper abdomen due to the open cholecystectomy that she has had, so I was unable to see the diaphragm, the liver, or even the stomach. In the lower abdomen, the bowels were covered with omentum. The exploration of the right lower quadrant cavity was performed. The cecum was identified and then the appendix was identified which was extending towards the pelvis and it had adhesion to the pelvis. The appendix and mesoappendix was isolated and exposed. The mesoappendix was ligated and transected with the PAPI stapler and then the appendix was ligated and transected with another PAPI stapler at the base. The appendix was removed from the intraperitoneal cavity through the incision in the left lower quadrant of the abdomen with the help of the Endo pouch. After removal of the appendix, the intra-abdominal cavity especially the right paracolic gutter and the pelvis was copiously irrigated with antibiotic solution. Another exploration was performed and there was no complication or bleeding. The trocars were removed under direct vision. The incisions were infiltrated with total of 30 mL of Marcaine 0.25%. The subcutaneous tissue was approximated with 4-0 chromic and the skin incisions were approximated with running subcuticular suture of 4-0 chromic. The patient tolerated the procedure very well and was transferred to recovery room intubated. Dr. Quintero stated that the patient was not breathing very well and he did not wish to extubate the patient although she was completely awake. Condition of the patient at the end of procedure was stable. The sponge and needle count correct. ESTIMATED BLOOD LOSS: 5 mL. Dante Huitron M.D. DR: Ofelia JOB#: [id number] CC: MIKEY
[2018-02-10] MEDS ORDERED: Acetaminophen 650 MG SUPP RECTAL PRN (21:21)
[2018-02-10] MEDS ORDERED: Metoclopramide 10mg/2ml Inj IVP PRN (21:23)
[2018-02-10] MEDS: D5 1/2NS w/KCl 20mEq 1,000 ML IV SCH (22:01)
[2018-02-11] MEDS: Morphine Sulfate 4mg/ml Inj IVP PRN ×2 (02:50→08:56)
[2018-02-11] MEDS: Piperacillin/Tazobactam 4.5 GM in NS 110 ML IVPB SCH ×2 (02:54→12:05)
[2018-02-11 06:33] LABS: BASOPHILS % (AUTO) 0.4 % (0.0-2.0); EOSINOPHILS % (AUTO) 0.3 % (0.0-3.0); HEMATOCRIT 30.9 % (37.0-47.0); HEMOGLOBIN 9.2 G/DL (12.0-16.0); LYMPHOCYTES % (AUTO) 13.2 % (20.0-45.0); MEAN CORPUSCULAR VOLUME 74 FL (80-99); MONOCYTES % (AUTO) 4.8 % (1.0-10.0); NEUTROPHILS % (AUTO) 81.3 % (45.0-75.0); PLATELET COUNT 357 K/UL (150-450); RED BLOOD COUNT 4.18 M/UL (4.20-5.40); WHITE BLOOD COUNT 13.5 K/UL (4.8-10.8)
[2018-02-11 06:39] LABS: ANION GAP 9 mmol/L (5-15); BLOOD UREA NITROGEN 5 mg/dL (7-18); CALCIUM 8.1 MG/DL (8.5-10.1); CARBON DIOXIDE 27 MMOL/L (21-32); CHLORIDE 100 MMOL/L (98-107); CREATININE 0.7 MG/DL (0.55-1.30); SODIUM 136 MMOL/L (136-145)
[2018-02-11] MEDS: D5 1/2NS w/KCl 20mEq 1,000 ML IV SCH (07:23)
[2018-02-11] MEDS ORDERED: Enoxaparin 40mg Inj SUBQ SCH (09:00)
[2018-02-11] MEDS ORDERED: Acetaminophen 650 MG SUPP RECTAL PRN (13:30)
[2018-02-11] MEDS: Piperacillin/Tazobactam 4.5 GM in D5W 110 ML IVPB SCH ×2 (13:50→22:55)
--- NOTE | 2018-02-11 14:36 | General Surgery Progress Note ---
General Surgery-Progress Note Subjective Procedure Performed Lap Appy Symptoms: passing flatus Objective Last 24 Hour Vital Signs Date Time Temp Pulse Resp B/P (MAP) Pulse Ox O2 Delivery O2 Flow Rate FiO2 02/11/18 13:50 99.3 02/11/18 12:00 98 02/11/18 09:26 99.3 02/11/18 08:56 99.3 02/11/18 08:00 98 02/11/18 04:00 92 02/10/18 21:32 Non-Rebreather 15.0 100 02/10/18 21:32 100 Non-Rebreather 15.0 100 02/10/18 21:32 107 23 Non-Rebreather 15.0 100 02/10/18 20:37 210.7 104 22 100 02/10/18 20:25 97 02/10/18 20:20 98.9 22 123/72 95 Non-Rebreather 100 98.9 02/10/18 17:23 98.8 02/10/18 17:10 98.8 22 172/73 95 Room Air 209.8 02/10/18 15:53 98.8 I&O Intake and Output 02/10/18 02/11/18 19:00 07:00 Intake Total 0 ml 1082.5 ml Output Total 1050 ml Balance 0 ml 32.5 ml Intake Oral 0 ml 0 ml IV Total 1082.5 ml Output Urine Total 1050 ml Dressing: dry Drains: none Respiratory: clear Abdomen: soft, non-tender, present bowel sounds Extremities: no tenderness Laboratory Tests Test 02/11/18 05:00 White Blood Count 13.5 K/UL (4.8-10.8) #H Red Blood Count 4.18 M/UL (4.20-5.40) L Hemoglobin 9.2 G/DL (12.0-16.0) L Hematocrit 30.9 % (37.0-47.0) L Mean Corpuscular Volume 74 FL (80-99) L Mean Corpuscular Hemoglobin 22.1 PG (27.0-31.0) L Mean Corpuscular Hemoglobin Concent 29.9 G/DL (32.0-36.0) L Red Cell Distribution Width 15.0 % (11.6-14.8) H Platelet Count 357 K/UL (150-450) Mean Platelet Volume 5.3 FL (6.5-10.1) L Neutrophils (%) (Auto) 81.3 % (45.0-75.0) H Lymphocytes (%) (Auto) 13.2 % (20.0-45.0) L Monocytes (%) (Auto) 4.8 % (1.0-10.0) Eosinophils (%) (Auto) 0.3 % (0.0-3.0) Basophils (%) (Auto) 0.4 % (0.0-2.0) Sodium Level 136 MMOL/L (136-145) Potassium Level 4.0 MMOL/L (3.5-5.1) Chloride Level 100 MMOL/L (98-107) Carbon Dioxide Level 27 MMOL/L (21-32) Anion Gap 9 mmol/L (5-15) Blood Urea Nitrogen 5 mg/dL (7-18) L Creatinine 0.7 MG/DL (0.55-1.30) Estimat Glomerular Filtration Rate > 60 mL/min (>60) Glucose Level 314 MG/DL (74-106) #H Calcium Level 8.1 MG/DL (8.5-10.1) L Assessment Post-op Diagnosis acute appy Plan Additional Comments continue current treatment Dante Huitron MD Feb 11, 2018 14:36
[2018-02-11] MEDS ORDERED: traMADol 50mg tab ORAL PRN (14:45)
--- NOTE | 2018-02-11 14:48 | 48 Hour Post Anesthesia Eval ---
Post Anesthesia Evaluation Procedure: Lap appy Date of Evaluation: Feb 11, 2018 Time of Evaluation: 13:05 Blood Pressure Systolic: 142 0: 92 Pulse Rate: 90 Respiratory Rate: 20 Temperature (Fahrenheit): 98.2 O2 Sat by Pulse Oximetry: 92 Airway: patent Nausea: No Vomiting: No Pain Intensity: 1 Hydration Status: adequate Cardiopulmonary Status: Stable Mental Status/LOC: patient returned to baseline Follow-up Care/Observations: As per surgery Post-Anesthesia Complications: No anesthetic complication Follow-up care needed: N/A Kimo Quintero MD Feb 11, 2018 14:48
[2018-02-11 15:20] VITALS: BP 142/92
[2018-02-11] MEDS: NovoLOG Insulin Flexpen SUBQ SCH ×2 (16:29→21:09)
[2018-02-11] MEDS ORDERED: NovoLOG Insulin Flexpen SUBQ SCH (16:30)
[2018-02-11] MEDS: Docusate Sod/Senna tab ORAL SCH (17:03)
[2018-02-11 20:00] VITALS: BP 145/89
[2018-02-12] VITALS: BP 160/88
[2018-02-12] MEDS ORDERED: Morphine Sulfate 4mg/ml Inj IVP PRN (00:30)
[2018-02-12] MEDS: Morphine Sulfate 4mg/ml Inj IVP PRN ×5 (00:46→22:09)
[2018-02-12 04:00] VITALS: BP 160/85
[2018-02-12] MEDS: Piperacillin/Tazobactam 4.5 GM in D5W 110 ML IVPB SCH (05:14)
[2018-02-12] MEDS: Metoclopramide 10mg/2ml Inj IVP PRN ×2 (05:19→16:23)
[2018-02-12] MEDS: NovoLOG Insulin Flexpen SUBQ SCH ×4 (06:18→21:25)
[2018-02-12 07:48] LABS: BASOPHILS % (AUTO) 0.3 % (0.0-2.0); EOSINOPHILS % (AUTO) 1.5 % (0.0-3.0); HEMATOCRIT 29.6 % (37.0-47.0); HEMOGLOBIN 8.9 G/DL (12.0-16.0); LYMPHOCYTES % (AUTO) 12.1 % (20.0-45.0); MEAN CORPUSCULAR VOLUME 73 FL (80-99); MONOCYTES % (AUTO) 5.3 % (1.0-10.0); NEUTROPHILS % (AUTO) 80.7 % (45.0-75.0); PLATELET COUNT 422 K/UL (150-450); RED BLOOD COUNT 4.04 M/UL (4.20-5.40); RED CELL DISTRIBUTION WIDTH 14.7 % (11.6-14.8); WHITE BLOOD COUNT 12.3 K/UL (4.8-10.8)
[2018-02-12 07:52] LABS: ANION GAP 6 mmol/L (5-15); BLOOD UREA NITROGEN 5 mg/dL (7-18); CALCIUM 8.3 MG/DL (8.5-10.1); CARBON DIOXIDE 30 MMOL/L (21-32); CHLORIDE 102 MMOL/L (98-107); CREATININE 0.6 MG/DL (0.55-1.30); POTASSIUM 3.7 MMOL/L (3.5-5.1); SODIUM 138 MMOL/L (136-145)
[2018-02-12 08:00] VITALS: BP 129/56
[2018-02-12] MEDS: Docusate Sod/Senna tab ORAL SCH ×2 (08:47→18:47)
[2018-02-12] MEDS: Enoxaparin 40mg Inj SUBQ SCH (09:08)
[2018-02-12 12:00] VITALS: BP 143/85
--- NOTE | 2018-02-12 13:13 | General Surgery Progress Note ---
General Surgery-Progress Note Subjective Procedure Performed Lap Appy Additional Comments c/o head ache Objective Last 24 Hour Vital Signs Date Time Temp Pulse Resp B/P (MAP) Pulse Ox O2 Delivery O2 Flow Rate FiO2 02/12/18 12:00 98.8 94 20 143/85 98 Room Air 98.8 02/12/18 10:36 98.6 02/12/18 10:06 98.6 02/12/18 08:00 97 02/12/18 08:00 98.1 95 20 129/56 98 98.1 02/12/18 04:00 98.6 93 20 160/85 97 98.6 02/12/18 04:00 100 02/12/18 00:00 97.9 92 20 160/88 94 97.9 02/12/18 00:00 101 02/11/18 20:00 98.6 88 18 145/89 94 Nasal Cannula 2.0 98.6 02/11/18 20:00 89 02/11/18 19:58 Non-Rebreather 15.0 100 02/11/18 19:58 100 Non-Rebreather 15.0 100 02/11/18 16:27 85 02/11/18 15:20 98.2 90 20 142/92 95 Nasal Cannula 2.0 98.2 02/11/18 15:08 208.8 90 20 92 02/11/18 14:49 99.3 02/11/18 13:50 99.3 I&O Intake and Output 02/11/18 02/12/18 19:00 07:00 Intake Total 555.0 ml 450 ml Output Total 180 ml Balance 375.0 ml 450 ml Intake Oral 400 ml IV Total 155.0 ml 450 ml Output Urine Total 180 ml # Voids 1 Dressing: dry Drains: none Abdomen: soft, non-tender, absent bowel sounds Extremities: no tenderness Laboratory Tests Test 02/12/18 07:20 White Blood Count 12.3 K/UL (4.8-10.8) H Red Blood Count 4.04 M/UL (4.20-5.40) L Hemoglobin 8.9 G/DL (12.0-16.0) L Hematocrit 29.6 % (37.0-47.0) L Mean Corpuscular Volume 73 FL (80-99) L Mean Corpuscular Hemoglobin 22.2 PG (27.0-31.0) L Mean Corpuscular Hemoglobin Concent 30.2 G/DL (32.0-36.0) L Red Cell Distribution Width 14.7 % (11.6-14.8) Platelet Count 422 K/UL (150-450) Mean Platelet Volume 5.7 FL (6.5-10.1) L Neutrophils (%) (Auto) 80.7 % (45.0-75.0) H Lymphocytes (%) (Auto) 12.1 % (20.0-45.0) L Monocytes (%) (Auto) 5.3 % (1.0-10.0) Eosinophils (%) (Auto) 1.5 % (0.0-3.0) Basophils (%) (Auto) 0.3 % (0.0-2.0) Sodium Level 138 MMOL/L (136-145) Potassium Level 3.7 MMOL/L (3.5-5.1) Chloride Level 102 MMOL/L (98-107) Carbon Dioxide Level 30 MMOL/L (21-32) Anion Gap 6 mmol/L (5-15) Blood Urea Nitrogen 5 mg/dL (7-18) L Creatinine 0.6 MG/DL (0.55-1.30) Estimat Glomerular Filtration Rate > 60 mL/min (>60) Glucose Level 241 MG/DL (74-106) H Calcium Level 8.3 MG/DL (8.5-10.1) L Assessment Post-op Diagnosis acute appy Plan Additional Comments continue current treatment Dante Huitron MD Feb 12, 2018 13:13
[2018-02-12 20:00] VITALS: BP 134/74
[2018-02-12] MEDS ORDERED: Miralax 17gm pkt ORAL SCH (21:00)
[2018-02-13] VITALS: BP 155/83
[2018-02-13] MEDS: Morphine Sulfate 4mg/ml Inj IVP PRN ×2 (02:00→09:23)
[2018-02-13 04:00] VITALS: BP 158/86
[2018-02-13] MEDS: NovoLOG Insulin Flexpen SUBQ SCH ×3 (06:16→17:28)
[2018-02-13 07:48] LABS: BASOPHILS % (AUTO) 0.4 % (0.0-2.0); EOSINOPHILS % (AUTO) 1.7 % (0.0-3.0); HEMATOCRIT 31.1 % (37.0-47.0); HEMOGLOBIN 9.4 G/DL (12.0-16.0); LYMPHOCYTES % (AUTO) 13.6 % (20.0-45.0); MEAN CORPUSCULAR VOLUME 74 FL (80-99); MONOCYTES % (AUTO) 7.6 % (1.0-10.0); NEUTROPHILS % (AUTO) 76.7 % (45.0-75.0); PLATELET COUNT 417 K/UL (150-450); RED CELL DISTRIBUTION WIDTH 14.9 % (11.6-14.8); WHITE BLOOD COUNT 11.9 K/UL (4.8-10.8)
[2018-02-13 08:00] VITALS: BP 161/82
[2018-02-13 08:21] LABS: ANION GAP 10 mmol/L (5-15); BLOOD UREA NITROGEN 5 mg/dL (7-18); CALCIUM 8.2 MG/DL (8.5-10.1); CARBON DIOXIDE 25 MMOL/L (21-32); CHLORIDE 102 MMOL/L (98-107); CREATININE 0.5 MG/DL (0.55-1.30); POTASSIUM 3.3 MMOL/L (3.5-5.1); SODIUM 137 MMOL/L (136-145)
[2018-02-13] MEDS: Enoxaparin 40mg Inj SUBQ SCH (09:21)
[2018-02-13] MEDS: Docusate Sod/Senna tab ORAL SCH ×2 (09:22→17:27)
[2018-02-13 12:00] VITALS: BP 161/81
[2018-02-13 16:00] VITALS: BP 156/90
--- NOTE | 2018-02-13 17:05 | General Surgery Progress Note ---
General Surgery-Progress Note Subjective Procedure Performed Lap Appy Symptoms: improved, BM Objective Last 24 Hour Vital Signs Date Time Temp Pulse Resp B/P (MAP) Pulse Ox O2 Delivery O2 Flow Rate FiO2 02/13/18 16:00 97.3 96 20 156/90 94 Room Air 2.0 100 97.3 02/13/18 16:00 94 02/13/18 12:00 94 02/13/18 12:00 97.3 93 20 161/81 94 Room Air 2.0 100 97.3 02/13/18 09:53 97.7 02/13/18 09:23 97.7 02/13/18 08:00 98.2 93 20 161/82 94 Room Air 2.0 100 98.2 02/13/18 08:00 115 02/13/18 04:00 97.7 96 20 158/86 94 Room Air 97.7 02/13/18 04:00 92 02/13/18 00:00 87 02/13/18 00:00 97.9 90 20 155/83 95 Room Air 97.9 02/12/18 20:00 98.0 87 20 134/74 97 Room Air 98.0 02/12/18 20:00 89 I&O Intake and Output 02/12/18 02/13/18 19:00 07:00 Intake Total 300 ml 592 ml Balance 300 ml 592 ml IV Total 300 ml 592 ml # Voids 1 Dressing: dry Respiratory: clear Abdomen: soft, non-tender, present bowel sounds Extremities: no tenderness Laboratory Tests Test 02/13/18 06:15 White Blood Count 11.9 K/UL (4.8-10.8) H Red Blood Count 4.20 M/UL (4.20-5.40) Hemoglobin 9.4 G/DL (12.0-16.0) L Hematocrit 31.1 % (37.0-47.0) L Mean Corpuscular Volume 74 FL (80-99) L Mean Corpuscular Hemoglobin 22.3 PG (27.0-31.0) L Mean Corpuscular Hemoglobin Concent 30.1 G/DL (32.0-36.0) L Red Cell Distribution Width 14.9 % (11.6-14.8) H Platelet Count 417 K/UL (150-450) Mean Platelet Volume 6.1 FL (6.5-10.1) L Neutrophils (%) (Auto) 76.7 % (45.0-75.0) H Lymphocytes (%) (Auto) 13.6 % (20.0-45.0) L Monocytes (%) (Auto) 7.6 % (1.0-10.0) Eosinophils (%) (Auto) 1.7 % (0.0-3.0) Basophils (%) (Auto) 0.4 % (0.0-2.0) Sodium Level 137 MMOL/L (136-145) Potassium Level 3.3 MMOL/L (3.5-5.1) L Chloride Level 102 MMOL/L (98-107) Carbon Dioxide Level 25 MMOL/L (21-32) Anion Gap 10 mmol/L (5-15) Blood Urea Nitrogen 5 mg/dL (7-18) L Creatinine 0.5 MG/DL (0.55-1.30) L Estimat Glomerular Filtration Rate > 60 mL/min (>60) Glucose Level 222 MG/DL (74-106) H Calcium Level 8.2 MG/DL (8.5-10.1) L Assessment Post-op Diagnosis acute appy Plan Additional Comments discharge to home Dante Huitron MD Feb 13, 2018 17:05
--- NOTE | 2018-02-13 17:07 | Discharge Instructions ---
Discharge Instructions Discharge Instructions Follow up with: my office in one week Diet: 4 GM sodium (no salt added), diabetic calorie control Resume Normal Activity?: Yes Activity: as tolerated For Surgical Patients Dressing Care: other - remove dressings May shower: Yes For Congestive Heart Failure Reminder Report to your physician any weight gain of 5 pounds or more in one week. Dante Huitron MD Feb 13, 2018 17:07
--- NOTE | 2018-02-14 03:14 | Discharge Summary ---
DATE OF ADMISSION: 02/10/2018 DATE OF DISCHARGE: 02/13/2018 ADMITTING DIAGNOSIS: Acute appendicitis. DISCHARGE DIAGNOSIS: Acute appendicitis. OPERATION: Laparoscopy appendectomy. COMPLICATION: None. REASON FOR ADMISSION: This is a 47-year-old, morbidly obese, female, who presented to emergency room complaining of one-day history of abdominal pain. The pain was located at the lower abdomen and associated with nausea and vomiting. Physical examination showed a very obese abdomen with tenderness and guarding at lower abdomen. CBC on admission was 8500 with normal differential, but the CT scan was reported as acute appendicitis. HOSPITAL COURSE: The patient was admitted to hospital and immediately underwent laparoscopy appendectomy during which an acute appendicitis was encountered. Postoperative course, the patient was slow in returning the bowel function and the WBC was high. She was kept on clear liquid diet and IV antibiotic and finally the WBC returned for about 11,000 and today, she finally had a bowel movement. Physical examination showed that the chest was clear. Abdomen is very obese, but soft and nontender. At this time, she will be discharged to home to be followed in my office in 1 week. DISCHARGE MEDICATIONS: Keflex, tramadol and Cindy-Colace. DISCHARGE INSTRUCTIONS: The patient has been instructed to continue her home medication. Condition of the patient at the time of discharge improved. Followup office in 1 week. The patient has been instructed about the diet, activity and showering. Dante Huitron M.D. DR: CRISTO JOB#: [id number] CC:
[2018-02-14] MEDS ORDERED: IBUPROFEN600 MG ORAL (09:10)
[2018-02-14] MEDS ORDERED: ALBUTEROL SULF8.5 GM INH (10:11)
== END 2018-02-13 18:40 | disposition home or self-care (01) | DRG 225 ==
LOC: EMR 12:40 → EDBEDREQ 18:01 → SUR 18:10 → ICU 19:51 → 2E 02-11 12:00
PROC: 0DTJ4ZZ Resection of Appendix, Percutaneous Endoscopic Approach (ICD-10-PCS; principal; 2018-02-10 18:15)
DX: K35.80 Unspecified acute appendicitis (principal); Z68.43 Body mass index [BMI] 50.0-59.9, adult; I10 Essential (primary) hypertension; E66.01 Morbid (severe) obesity due to excess calories; E11.9 Type 2 diabetes mellitus without complications
CPT/HCPCS: 36415; 74177; 80048; 80053; 81003; 81025; 82962; 83690; 85025; 94003; 94150; 94664; 94760; 99291; C9399; J1815; J2250; J2405; J2710; J2765; J8499

== ENCOUNTER 2018-02-14 07:32 | Emergency (ER) | payer MEDICAID ==
[~2018-02-14] VITALS: Ht 162.6 cm; Wt 127.9 kg
[~2018-02-14 07:32] MED LIST changes: +ACETAMINOPHEN325 M1 ORAL; +METFORMIN HCL850 M1 ORAL; +METHOCARBAMOL750 MG ORAL
[2018-02-14] MEDS ORDERED: Albuterol ud Inhalation HHN ONE (08:00)
[2018-02-14] MEDS ORDERED: Ipratropium 0.02% Inh Soln 2.5ml UD HHN ONE (08:00)
[2018-02-14 08:07] VITALS: BP 176/99
[2018-02-14 08:31] LABS: ANION GAP 8 mmol/L (5-15); BLOOD UREA NITROGEN 3 mg/dL (7-18); CALCIUM 8.8 MG/DL (8.5-10.1); CARBON DIOXIDE 28 MMOL/L (21-32); CHLORIDE 101 MMOL/L (98-107); CREATININE 0.6 MG/DL (0.55-1.30); POTASSIUM 3.4 MMOL/L (3.5-5.1); SODIUM 137 MMOL/L (136-145)
[2018-02-14 08:34] LABS: BASOPHILS % (AUTO) 0.4 % (0.0-2.0); HEMATOCRIT 29.5 % (37.0-47.0); HEMOGLOBIN 9.1 G/DL (12.0-16.0); LYMPHOCYTES % (AUTO) 13.1 % (20.0-45.0); MEAN CORPUSCULAR VOLUME 72 FL (80-99); MONOCYTES % (AUTO) 7.7 % (1.0-10.0); NEUTROPHILS % (AUTO) 76.9 % (45.0-75.0); PLATELET COUNT 420 K/UL (150-450); RED BLOOD COUNT 4.11 M/UL (4.20-5.40); RED CELL DISTRIBUTION WIDTH 14.7 % (11.6-14.8); WHITE BLOOD COUNT 12.8 K/UL (4.8-10.8)
[2018-02-14 08:46] LABS: ALANINE AMINOTRANSFERASE 35 U/L (12-78); ALBUMIN 2.9 G/DL (3.4-5.0); ALBUMIN/GLOBULIN RATIO 0.6 (1.0-2.7); ALKALINE PHOSPHATASE 129 U/L (46-116); ASPARTATE AMINO TRANSFERASE 17 U/L (15-37); BILIRUBIN,TOTAL 0.5 MG/DL (0.2-1.0); CKMB < 0.5 NG/ML (0.0-3.6); CREATINE KINASE 64 U/L (26-308)
[2018-02-14 08:57] LABS: INR 0.9 (0.9-1.1)
[2018-02-14] MEDS ORDERED: IBUPROFEN600 MG ORAL (09:10)
[2018-02-14 09:35] VITALS: BP 124/82
--- NOTE | 2018-02-14 10:02 | Diagnostic Imaging Report ---
Indication: Shortness of breath Technique: One view of the chest Comparison: 04/14/2017 Findings: Body habitus limits evaluation. Faint bilateral basilar opacities and apparent central interstitial prominence is probably related to body habitus. The heart is upper limits normal in size. No definite acute infiltrates, effusions, or congestion Impression: No definite acute process
[2018-02-14] MEDS ORDERED: ALBUTEROL SULF8.5 GM INH (10:11)
--- NOTE | 2018-02-14 10:22 | Emergency Room Report ---
History of Present Illness General Chief Complaint: Upper Respiratory Illness Present Illness HPI Patient is a 47-year-old female who presented after increased difficulty breathing. Patient recently had the abdominal surgery for appendicitis. Patient reported having increased cough. Patient had prior history of asthma. She denies any new leg pain or swelling. Patient states that she had not been taking her antibiotics as previously prescribed. Patient denies any severe shortness of breath. She denies any fever. Allergies: Coded Allergies: No Known Allergies (Unverified , 04/14/17) Patient History Past Medical History: see triage record Last Menstrual Period: 1 week ago Reviewed Nursing Documentation: PMH: Agreed; PSxH: Agreed Nursing Documentation-PMH Hx Diabetes: Yes Hx Gastrointestinal Problems: Yes - APPENDECTOMY,January Review of Systems All Other Systems: negative except mentioned in HPI Physical Exam Vital Signs Date Time Temp Pulse Resp B/P (MAP) Pulse Ox O2 Delivery O2 Flow Rate FiO2 02/14/18 07:37 98.8 101 18 176/99 93 Room Air 98.8 02/14/18 08:01 21 Sp02 EP Interpretation: reviewed, normal General Appearance: normal inspection, well appearing, no apparent distress, alert, GCS 15, obese Head: atraumatic ENT: normal ENT inspection, hearing grossly normal, normal voice Neck: normal inspection, full range of motion, supple, no bony tend Respiratory: normal inspection, no respiratory distress, no retraction, wheezing Cardiovascular #1: regular rate, rhythm, no edema Gastrointestinal: normal inspection, normal bowel sounds, non tender, soft, no guarding, no hernia, other - incisions c/d/i Genitourinary: no CVA tenderness Musculoskeletal: normal inspection, back normal, normal range of motion Neurologic: normal inspection, alert, oriented x3, responsive, support team assoc III-XII nml as tested, speech normal Psychiatric: normal inspection, judgement/insight normal, mood/affect normal Skin: normal inspection, normal color, no rash Medical Decision Making Diagnostic Impression: Primary Impression: Bronchitis ER Course Patient presented for shortness of breath. Differential diagnosis included but was not limited to bronchitis, pneumonia, pulmonary embolism, pericarditis, asthma, foreign body.Because of complexity of patient's case laboratory testing and imaging studies were ordered. The patient noted have a minimally elevated white blood count. The patient was advised to take her antibiotics which she had not filled yet. Chest x-ray one view read by radiology showed normal cardiac size without evident infiltrate. Patient was given breathing treatment with improvement in her symptoms. The patient was advised to follow-up for recheck with primary care physician.The patient is advised to follow up with primary care doctor in 1-2 days. Patient is advised to return if any worsening condition or if any changes in status that are concerning. This report is dictated with [employer] shoe folder software which may occasionally lead to discrepancies related to use of this software. Labs Test 02/14/18 08:00 White Blood Count 12.8 K/UL (4.8-10.8) Red Blood Count 4.11 M/UL (4.20-5.40) Hemoglobin 9.1 G/DL (12.0-16.0) Hematocrit 29.5 % (37.0-47.0) Mean Corpuscular Volume 72 FL (80-99) Mean Corpuscular Hemoglobin 22.1 PG (27.0-31.0) Mean Corpuscular Hemoglobin Concent 30.7 G/DL (32.0-36.0) Red Cell Distribution Width 14.7 % (11.6-14.8) Platelet Count 420 K/UL (150-450) Mean Platelet Volume 5.8 FL (6.5-10.1) Neutrophils (%) (Auto) 76.9 % (45.0-75.0) Lymphocytes (%) (Auto) 13.1 % (20.0-45.0) Monocytes (%) (Auto) 7.7 % (1.0-10.0) Eosinophils (%) (Auto) 2.0 % (0.0-3.0) Basophils (%) (Auto) 0.4 % (0.0-2.0) Prothrombin Time 9.9 SEC (9.30-11.50) Prothromb Time International Ratio 0.9 (0.9-1.1) Activated Partial Thromboplast Time 29 SEC (23-33) Sodium Level 137 MMOL/L (136-145) Potassium Level 3.4 MMOL/L (3.5-5.1) Chloride Level 101 MMOL/L (98-107) Carbon Dioxide Level 28 MMOL/L (21-32) Anion Gap 8 mmol/L (5-15) Blood Urea Nitrogen 3 mg/dL (7-18) Creatinine 0.6 MG/DL (0.55-1.30) Estimat Glomerular Filtration Rate > 60 mL/min (>60) Glucose Level 187 MG/DL (74-106) Calcium Level 8.8 MG/DL (8.5-10.1) Total Bilirubin 0.5 MG/DL (0.2-1.0) Aspartate Amino Transf (AST/SGOT) 17 U/L (15-37) Alanine Aminotransferase (ALT/SGPT) 35 U/L (12-78) Alkaline Phosphatase 129 U/L (46-116) Total Creatine Kinase 64 U/L (26-308) Creatine Kinase MB < 0.5 NG/ML (0.0-3.6) Creatine Kinase MB Relative Index 0.7 Troponin I 0.017 ng/mL (0.000-0.056) Pro-B-Type Natriuretic Peptide 315 pg/mL (0-125) Total Protein 7.7 G/DL (6.4-8.2) Albumin 2.9 G/DL (3.4-5.0) Globulin 4.8 g/dL Albumin/Globulin Ratio 0.6 (1.0-2.7) Lipase 74 U/L (73-393) Last Vital Signs Date Time Temp Pulse Resp B/P (MAP) Pulse Ox O2 Delivery O2 Flow Rate FiO2 02/14/18 09:36 98.8 02/14/18 09:35 94 13 124/82 98 Room Air 02/14/18 08:04 21 Status: improved Disposition: HOME, SELF-CARE Condition: Stable Scripts Albuterol Sulfate* (ALBUTEROL SULFATE MDI*) 8.5 Gm Hfa.aer.ad 2 PUFF INH Q4H, #1 INH 0 Refills Prov: Florentino Wesley MD 02/14/18 Patient Instructions: Acute Bronchitis Florentino Wesley MD Feb 14, 2018 10:21
[2018-02-14 10:25] VITALS: BP 140/85
== END 2018-02-14 10:25 | disposition home or self-care (01) ==
LOC: EMR 08:19
DX: J40 Bronchitis, not specified as acute or chronic (principal); E11.9 Type 2 diabetes mellitus without complications; Z90.49 Acquired absence of other specified parts of digestive tract
CPT/HCPCS: 36415; 71045; 80053; 82550; 82553; 83690; 83880; 84484; 85025; 85610; 85730; 93005; 94640; 94664; 99283

== ENCOUNTER 2018-11-04 14:14 | Emergency (ER) | payer MEDICAID ==
[~2018-11-04] VITALS: Ht 157.5 cm; Wt 123.4 kg
[~2018-11-04 14:14] MED LIST changes: +ALBUTEROL SULF8.5 GM INH
[2018-11-04] MEDS ORDERED: LISINOPRIL20 MG ORAL (14:24)
--- NOTE | 2018-11-04 14:33 | NUR ---
ED Nurse Note: Pt fell x 2 weeks ago. Complaining of pain 06/04 rt knee. Non radiating. A + O x4. Ambulatory.
--- NOTE | 2018-11-04 14:52 | Emergency Room Report ---
History of Present Illness General Chief Complaint: Lower Extremity Injury Source: Patient Present Illness HPI 48-year-old female patient presents ER complaining of times 2 weeks. Reports pain symptoms began status post slip and fall while she was cleaning the floors. Reports she was not dizzy or feeling pain prior to fall. Denies hitting her head or loss consciousness. Reports pain with inhalation. Reports been taking Tylenol with mild relief of pain symptoms. Denies other aggravating or relieving factors. Reports spent day yesterday [place] around [place] exacerbate pain symptoms. Allergies: Coded Allergies: No Known Allergies (Unverified , 04/14/17) Patient History Past Medical History: see triage record Now: No Reviewed Nursing Documentation: PMH: Agreed; PSxH: Agreed Nursing Documentation-PMH Past Medical History: No History, Except For Hx Hypertension: Yes Hx Diabetes: Yes Hx Gastrointestinal Problems: Yes - APPENDECTOMY,January Review of Systems All Other Systems: negative except mentioned in HPI Physical Exam Vital Signs Date Time Temp Pulse Resp B/P (MAP) Pulse Ox O2 Delivery O2 Flow Rate FiO2 11/04/18 14:18 97.9 101 18 159/95 97 Room Air Sp02 EP Interpretation: reviewed, normal General Appearance: well appearing, no apparent distress, alert, GCS 15, non- toxic Head: normocephalic, atraumatic Eyes: bilateral eye normal inspection, bilateral eye PERRL Neck: full range of motion Respiratory: lungs clear, normal breath sounds, no rhonchi, no respiratory distress, no accessory muscle use, no wheezing, speaking full sentences Cardiovascular #1: regular rate, rhythm, no edema Cardiovascular #2: 2+ dorsalis pedis (R), 2+ dorsalis pedis (L) Musculoskeletal: back normal, digits/nails normal, gait/station normal, normal range of motion, no calf tenderness, pelvis stable, Gregory's Sign negative, other - No laxity with varus or valgus stress, negative anterior and posterior drawer test Psychiatric: mood/affect normal Skin: no rash, other - Varicose veins Medical Decision Making PA Attestation Dr. Ernst is my supervising Physician whom patient management has been discussed with. Diagnostic Impression: Primary Impression: Knee sprain ER Course Pt. presents to the ED c/o right knee pain times 2 weeks. Ddx considered but are not limited to fracture, sprain, strain, contusion, dislocation. No erythema, no warmth to touch, no fever, nontoxic appearing, low suspicion for septic joint. Soft compartments, no pulselessness, no pallor, no paresthesias, low suspicion for compartment syndrome at this time. Vital signs: are WNL, pt. is afebrile Ordered X-ray and pain medication. ER COURSE Provided with pain medication. An X-ray of the right knee shows no acute fracture per the preliminary reading, varicose veins noted per the radiologist. Advised patient to follow-up with primary care provider and discuss referral to general surgeon vascular surgeon for varicose veins. Likely knee sprain causing pain symptoms. Provided with contact information for general surgeon. Joel wrap was applied to the right knee. Was checked afterwards by me showing good alignment and support with distal neurovascular functioning intact. Cane provided. Patient instructed on RICE method: rest, ice, compression, elevation. Patient instructed on rest, ice and heat. Patient instructed to be WBAT Contact information for orthopedic urgent care provided, follow-up with urgent care if unable to followup with primary care provider and get referral to manufacturing specialist. Followup with primary care provider. Discuss referral to ortho/pain management/ PT as needed. Discuss further imaging with MRI/CT as needed. DISCHARGE: -Rx provided for Motrin for pain symptoms. At this time pt. is stable for d/c to home. Patient is resting comfortably, in no acute distress, nontoxic appearing, talking without difficulty. Will provide printed patient care instructions, and any necessary prescriptions. Patient instructed to follow with primary care provider in 3 - 5 days and to request further follow-up as needed. Care plan and follow up instructions have been discussed with the patient prior to discharge. Take medications as directed. Patient questions asked and answered. Patient reports understanding and agreement to treatment plan. ER precautions given, patient instructed to return to ER immediately for any new or worsening of symptoms. - Please note that this Emergency Department Report was dictated using [employer] laboratory technician technology software, occasionally this can lead to erroneous entry secondary to interpretation by the dictation equipment. Other X-Ray Diagnostic Results Other X-Ray Diagnostic Results : X-Ray ordered: Right knee # of Views/Limited Vs Complete: 3 View Indication: Pain EP Interpretation: Yes PA Xray: Interpretation reviewed, by supervising MD, and agrees with findings. Interpretation: no dislocation, no soft tissue swelling, no fractures, other - Varicose veins Impression: No acute disease AIDAN Koehler Text Vasu Singh PA-C Last Vital Signs Date Time Temp Pulse Resp B/P (MAP) Pulse Ox O2 Delivery O2 Flow Rate FiO2 11/04/18 14:18 97.9 101 18 159/95 97 Room Air Status: improved Disposition: HOME, SELF-CARE Condition: Stable Scripts Ibuprofen* (MOTRIN*) 600 Mg Tablet 600 MG ORAL Q6H PRN for For Pain, #30 TAB Prov: Santo Singh 11/04/18 Patient Instructions: Varicose Veins, Knee Sprain Additional Instructions: Patient instructed to follow up with primary care provider and discuss further referral to orthopedics/physical therapy/pain management as needed. If unable to followup with PCP, followup with orthopedic urgent care in 5-7 days , call to schedule appointment. Patient instructed on RICE method: rest, ice, compression, elevation. Follow-up with general and/or vascular surgeon for varicose veins. Patient instructed to WBAT. Take medications as directed. Patient questions asked and answered. ER precautions given, patient instructed to return to ER immediately for any new or worsening of symptoms. [facility] [address] [facility] [address] [facility], [address] [email or web address] Santo Singh Nov 04, 2018 14:52
--- NOTE | 2018-11-04 14:57 | NUR ---
ED Nurse Note: Xray at the bedside
--- NOTE | 2018-11-04 15:43 | Diagnostic Imaging Report ---
Indication: Knee pain Technique: 3 views of the right knee Comparison: None Findings: No acute fractures. No dislocations. No suprapatellar effusion. The joint spaces are preserved. The surrounding soft tissues demonstrate serpiginous structures which presumably represent varicose veins Impression: No acute process. Evidence of varicose veins
[2018-11-04] MEDS ORDERED: IBUPROFEN600 MG ORAL (15:54)
[2018-11-04 16:21] VITALS: BP 150/99
--- NOTE | 2018-11-04 16:22 | NUR ---
ER DISCHARGE NOTE: Patient is cleared to be discharged per ERMD, pt is aox4, on room air, with stable vital signs. pt was given dc and prescription instructions, pt was able to verbalize understanding, pt id band removed without complications. pt is able to ambulate with steady gait. pt took all belongings. Cane provided for pt.
== END 2018-11-04 16:22 | disposition home or self-care (01) ==
LOC: EMR 14:52
DX: S83.91XA Sprain of unspecified site of right knee, initial encounter (principal); W01.0XXA Fall on same level from slipping, tripping and stumbling without subsequent striking against object, initial encounter; Y93.E5 Activity, floor mopping and cleaning; Y92.009 Unspecified place in unspecified non-institutional (private) residence as the place of occurrence of the external cause; I10 Essential (primary) hypertension; E11.9 Type 2 diabetes mellitus without complications
CPT/HCPCS: 99283

== ENCOUNTER 2018-12-25 20:49 | Emergency (ER) | payer MEDICAID ==
[~2018-12-25] VITALS: Ht 160 cm; Wt 127.0 kg
[~2018-12-25 20:49] MED LIST changes: +LISINOPRIL20 MG ORAL
[2018-12-25] MEDS ORDERED: LORazepam Inj 2mg/ml 1ml IV ONE (21:15)
--- NOTE | 2018-12-25 21:16 | Emergency Room Report ---
History of Present Illness General Chief Complaint: Dyspnea/Respdistress Source: Patient Present Illness HPI Is a 48-year-old female with a history of high blood pressure and diabetes. She presents with chief complaint of shortness of breath. Onset was acute. Occurred about 30-40 minutes ago. Before that she was fine. No trauma. No argument. No anxiety. She felt short of breath. [place] like she can't catch her breath. [place] dizzy and lightheaded. Similar symptom last year. No history of anxiety. No calf tenderness. No history of blood clots in the family. Not on control pill. Allergies: Coded Allergies: No Known Allergies (Unverified , 12/25/18) Patient History Past Medical History: see triage record, old chart reviewed, DM, HTN Past Surgical History: other Pertinent Family History: none Social History: Denies: smoking Last Menstrual Period: 12-19-2018 Now: No Immunizations: other Reviewed Nursing Documentation: PMH: Agreed; PSxH: Agreed Nursing Documentation-PMH Hx Hypertension: Yes Hx Diabetes: Yes Hx Gastrointestinal Problems: Yes - APPENDECTOMY,January Review of Systems Eye: Denies: eye pain, blurred vision ENT: Denies: ear pain, nose congestion, throat swelling Respiratory: Reports: shortness of breath; Denies: cough Cardiovascular: Denies: chest pain, palpitations Gastrointestinal: Denies: abdominal pain, diarrhea, nausea, vomiting Musculoskeletal: Denies: back pain, joint pain Skin: Denies: rash Neurological: Denies: headache, numbness Endocrine: Denies: increased thirst, increased urine Hematologic/Lymphatic: Denies: easy bruising All Other Systems: negative except mentioned in HPI Physical Exam Vital Signs Date Time Temp Pulse Resp B/P (MAP) Pulse Ox O2 Delivery O2 Flow Rate FiO2 12/25/18 21:00 98.2 86 20 97 Room Air vitals with high blood pressure Sp02 EP Interpretation: reviewed, normal General Appearance: well appearing, no apparent distress, alert, obese Head: normocephalic, atraumatic Eyes: bilateral eye PERRL, bilateral eye EOMI ENT: hearing grossly normal, normal pharynx Neck: full range of motion, supple, no meningismus Respiratory: chest non-tender, lungs clear, normal breath sounds Cardiovascular #1: regular rate, rhythm, no murmur Gastrointestinal: normal bowel sounds, non tender, no mass, no organomegaly, no bruit, non-distended Musculoskeletal: back normal, gait/station normal, normal range of motion Psychiatric: anxious Skin: warm/dry Medical Decision Making Diagnostic Impression: Primary Impression: Panic anxiety syndrome Additional Impression: Dyspnea Qualified Codes: R06.02 - Shortness of breath ER Course She presents with acute dyspnea. She was very anxious when she came in. Blood pressure normalized after dose of Ativan. She fell better now. No evidence of ACS, PE, dissection to name a few. We'll discharge home. EKG Diagnostic Results Rate: normal Rhythm: NSR ST Segments: no acute changes Rhythm Strip Diag. Results EP Interpretation: yes Rate: 80 Rhythm: NSR, no PVC's, no ectopy Chest X-Ray Diagnostic Results Chest X-Ray Diagnostic Results : Chest X-Ray Ordered: Yes # of Views/Limited/Complete: 1 View Indication: Shortness of Breath EP Interpretation: Yes Interpretation: no consolidation, no effusion, no pneumothorax, no acute cardiopulmonary disease Impression: No acute disease Electronically Signed by: Pritesh Anne MD Last Vital Signs Date Time Temp Pulse Resp B/P (MAP) Pulse Ox O2 Delivery O2 Flow Rate FiO2 12/25/18 21:00 98.2 86 20 97 Room Air Status: improved Disposition: HOME, SELF-CARE Condition: Stable Scripts Lorazepam* (ATIVAN*) 1 Mg Tablet 1 MG ORAL THREE TIMES A DAY for anxiety, #15 TAB Prov: Pritesh Anne MD 12/25/18 Additional Instructions: Follow-up with your doctor in 7 days. Return if worse. Pritesh Anne MD December 25, 2018 21:16
--- NOTE | 2018-12-25 21:20 | NUR ---
ED Nurse Note: Pt walked in ED c/o sob x 30 min, pt states she was taking shower and all of sudden felt dizzy and had sob. no resp distress noted, pt o2sat 100% on RA, airway intact, noted pt crying and pt reports she has been under a lot of stress. pt AA&ox4, gcs=15, noted high bp 196/87, ERMD aware of pt's condition, NSR on conveyor monitor, resp even and unlabored on RA, LS =clear, will cont monitor.
[2018-12-25 21:40] VITALS: BP 190/86
--- NOTE | 2018-12-25 21:40 | NUR ---
ED Nurse Note: pt states she is unable to provide urine sample, states she can't go bathroom.
[2018-12-25 21:57] LABS: BASOPHILS % (AUTO) 0.7 % (0.0-2.0); EOSINOPHILS % (AUTO) 2.2 % (0.0-3.0); HEMATOCRIT 33.1 % (37.0-47.0); HEMOGLOBIN 10.4 G/DL (12.0-16.0); LYMPHOCYTES % (AUTO) 25.9 % (20.0-45.0); MEAN CORPUSCULAR VOLUME 76 FL (80-99); MONOCYTES % (AUTO) 5.6 % (1.0-10.0); NEUTROPHILS % (AUTO) 65.6 % (45.0-75.0); PLATELET COUNT 408 K/UL (150-450); RED BLOOD COUNT 4.36 M/UL (4.20-5.40); RED CELL DISTRIBUTION WIDTH 15.2 % (11.6-14.8); WHITE BLOOD COUNT 11.4 K/UL (4.8-10.8)
[2018-12-25 22:06] LABS: ANION GAP 9 mmol/L (5-15); BLOOD UREA NITROGEN 11 mg/dL (7-18); CALCIUM 9.5 MG/DL (8.5-10.1); CARBON DIOXIDE 29 MMOL/L (21-32); CHLORIDE 101 MMOL/L (98-107); CREATININE 0.8 MG/DL (0.55-1.30); POTASSIUM 3.9 MMOL/L (3.5-5.1); SODIUM 138 MMOL/L (136-145)
[2018-12-25 22:21] LABS: ALANINE AMINOTRANSFERASE 21 U/L (12-78); ALBUMIN 3.8 G/DL (3.4-5.0); ALBUMIN/GLOBULIN RATIO 0.9 (1.0-2.7); ALKALINE PHOSPHATASE 128 U/L (46-116); ASPARTATE AMINO TRANSFERASE 11 U/L (15-37); BILIRUBIN,TOTAL 0.2 MG/DL (0.2-1.0); CKMB 1.2 NG/ML (0.0-3.6); CREATINE KINASE 96 U/L (26-308)
[2018-12-25 22:40] VITALS: BP 155/89
[2018-12-25] MEDS ORDERED: ATIVAN1 MG ORAL (22:46)
[2018-12-25 23:07] VITALS: BP 126/87
--- NOTE | 2018-12-25 23:07 | NUR ---
ED Nurse Note: PT cleared to be d/c per ERMD, pt discharge and aftercare instruction provided w/ prescription, pt education done via discussion and handout, pt verbalized understanding and agrees with plan, pt advised to follow up with pcp or return to ed if changes in condition, pt reports feeling better after medication, pt accompanied by son and daughter, left w/ all belongings, vss, ambulatory w/ steady gait, iv d/c and dressing applied.
--- NOTE | 2018-12-26 14:55 | Diagnostic Imaging Report ---
Indication: Shortness of breath Technique: One view of the chest Comparison: 02/14/2018 Findings: Body habitus limits evaluation. The heart is enlarged. The lungs and pleural spaces are clear. Lungs appear less congested than on the previous exam Impression: Cardiomegaly. No acute process
--- NOTE | 2018-12-26 15:22 | Cardiology Report ---
APPROVED REPORT EKG Measurement Heart [id number] Normal sinus rhythm Normal ECG
== END 2018-12-25 23:07 | disposition home or self-care (01) ==
LOC: EMR 21:28
DX: F41.0 Panic disorder [episodic paroxysmal anxiety] (principal); R06.00 Dyspnea, unspecified; E11.9 Type 2 diabetes mellitus without complications; I10 Essential (primary) hypertension
CPT/HCPCS: 36415; 71045; 80053; 82550; 82553; 83880; 84484; 85025; 85379; 93005; 96361; 96374; 99284

== ENCOUNTER 2019-02-13 15:07 | Emergency (ER) | payer MEDICAID ==
[~2019-02-13] VITALS: Ht 157.5 cm; Wt 90.7 kg
[~2019-02-13 15:07] MED LIST changes: +ATIVAN1 MG ORAL
--- NOTE | 2019-02-13 15:31 | NUR ---
ED Nurse Note: PT WALKED IN TO ER TODAY FROM HOME. AOX4. PT C/O NONRADIATING UPPER CHEST PAIN, 06/04, AND SOB X YESTERDAY. 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 RR12, O2SAT 99% ON RA. NO SIGNS OF RESPIRATORY DISTRESS, RETRACTIONS, OR ACCESSORY MUSCLE USE NOTED. PT ABLE TO SPEAK IN FULL SENTENCES.
[2019-02-13 15:32] VITALS: BP 153/98
[2019-02-13] MEDS ORDERED: Albuterol ud Inhalation HHN ONE (16:00)
[2019-02-13] MEDS ORDERED: Aspirin Baby 81mg ORAL ONE (16:00)
[2019-02-13] MEDS ORDERED: Ipratropium 0.02% Inh Soln 2.5ml UD HHN ONE (16:00)
--- NOTE | 2019-02-13 16:16 | NUR ---
ED Nurse Note: XRAY AT BEDSIDE.
--- NOTE | 2019-02-13 16:16 | NUR ---
ED Nurse Note: RESPIRATORY CALLED FOR BREATHING TX.
--- NOTE | 2019-02-13 16:39 | NUR ---
ED Nurse Note: RT AT BEDSIDE FOR BREATHING TX.
--- NOTE | 2019-02-13 16:39 | Diagnostic Imaging Report ---
Indication: Shortness of breath and chest pain Technique: One view of the chest Comparison: 12/25/2018 Findings: Body habitus limits evaluation. The heart is enlarged. The lungs and pleural spaces are clear. Impression: Cardiomegaly. No acute process
[2019-02-13 16:46] VITALS: BP 144/80
[2019-02-13 16:57] LABS: BASOPHILS % (AUTO) 1.2 % (0.0-2.0); EOSINOPHILS % (AUTO) 2.2 % (0.0-3.0); HEMATOCRIT 30.1 % (37.0-47.0); HEMOGLOBIN 9.7 G/DL (12.0-16.0); LYMPHOCYTES % (AUTO) 23.3 % (20.0-45.0); MEAN CORPUSCULAR VOLUME 76 FL (80-99); NEUTROPHILS % (AUTO) 69.2 % (45.0-75.0); PLATELET COUNT 405 K/UL (150-450); RED BLOOD COUNT 3.93 M/UL (4.20-5.40); RED CELL DISTRIBUTION WIDTH 13.9 % (11.6-14.8); WHITE BLOOD COUNT 11.2 K/UL (4.8-10.8)
[2019-02-13 17:03] LABS: ANION GAP 11 mmol/L (5-15); BLOOD UREA NITROGEN 15 mg/dL (7-18); CALCIUM 8.6 MG/DL (8.5-10.1); CARBON DIOXIDE 25 MMOL/L (21-32); CHLORIDE 103 MMOL/L (98-107); CREATININE 0.7 MG/DL (0.55-1.30); POTASSIUM 3.8 MMOL/L (3.5-5.1); SODIUM 139 MMOL/L (136-145)
[2019-02-13 17:17] LABS: ALANINE AMINOTRANSFERASE 16 U/L (12-78); ALBUMIN 3.3 G/DL (3.4-5.0); ALBUMIN/GLOBULIN RATIO 0.9 (1.0-2.7); ALKALINE PHOSPHATASE 102 U/L (46-116); ASPARTATE AMINO TRANSFERASE 11 U/L (15-37); BILIRUBIN,TOTAL 0.2 MG/DL (0.2-1.0); CKMB 0.7 NG/ML (0.0-3.6); CREATINE KINASE 44 U/L (26-308)
[2019-02-13 17:33] LABS: APPEARANCE,URINE CLOUDY; BILIRUBIN, URINE NEGATIVE (NEGATIVE); GLUCOSE, URINE (UA) NEGATIVE (NEGATIVE); KETONES,URINE NEGATIVE (NEGATIVE); LEUKOCYTE ESTERASE ,URINE 2+ (NEGATIVE); NITRITE,URINE NEGATIVE (NEGATIVE); PH,URINE 6 (4.5-8.0); PROTEIN,URINE 2+ (NEGATIVE); UROBILINOGEN,URINE 1 MG/DL (0.0-1.0)
[2019-02-13 17:39] LABS: COLOR,URINE YELLOW
[2019-02-13] MEDS ORDERED: cefTRIAXone 1 GM in NS 55 ML IVPB ONE (18:00)
[2019-02-13 18:25] VITALS: BP 160/100
--- NOTE | 2019-02-13 18:25 | NUR ---
ED Nurse Note: PAIN REASSESSED AND PT DENIES ANY PAIN.
[2019-02-13 18:49] VITALS: BP 137/60
--- NOTE | 2019-02-13 19:04 | NUR ---
ED Nurse Note: REPORT GIVEN TO ELIZABETH DANIELS.
[2019-02-13] MEDS ORDERED: ALBUTEROL SULF8.5 GM INH (19:43)
[2019-02-13] MEDS ORDERED: CEPHALEXIN500 MG ORAL (19:43)
[2019-02-13 19:50] VITALS: BP 137/60
--- NOTE | 2019-02-13 19:50 | NUR ---
ER Nurse Note: Pt seen, treated, medically cleared for discharge by ERMD. Discharge instuctions and prescriptions given with repeat verbalization by pt. All orders completed per ERMD orders. Pt a&ox4, VSS, no signs of distress. Pt denies pain. ID band removed. IV removed, site clean and bandaged. Pt ambulaitory with steady gait, left with all belongings, left with own transportation.
--- NOTE | 2019-02-13 22:16 | Emergency Room Report ---
History of Present Illness General Chief Complaint: Chest Pain Source: Patient, Medical Record Present Illness HPI Patient is a 48-year-old female presented after increased chest discomfort. Patient had prior history of anxiety. She had intermittent episodes of difficulty with breathing. She had been having increased nonproductive cough. She reports having no recent fever or leg swelling. She denies any abdominal pain she had not been vomiting or having any diarrhea. She denies any exertional component to her chest pain. She denies any positional changes. She reports having prior history of diabetes. Allergies: Coded Allergies: No Known Allergies (Unverified , 12/25/18) Patient History Past Medical History: see triage record Last Menstrual Period: 02/11/19 Reviewed Nursing Documentation: PMH: Agreed; PSxH: Agreed Nursing Documentation-PMH Past Medical History: No History, Except For Hx Hypertension: Yes Hx Diabetes: Yes Hx Gastrointestinal Problems: Yes - APPENDECTOMY,January Physical Exam Vital Signs Date Time Temp Pulse Resp B/P (MAP) Pulse Ox O2 Delivery O2 Flow Rate FiO2 02/13/19 15:22 98.8 94 19 184/111 (135) 97 Room Air 02/13/19 16:30 21 Sp02 EP Interpretation: normal General Appearance: no apparent distress, alert, GCS 15, obese ENT: hearing grossly normal, normal pharynx Neck: full range of motion Respiratory: chest non-tender, no rhonchi, no respiratory distress, wheezing Cardiovascular #1: normal inspection, regular rate, rhythm, no edema Gastrointestinal: normal inspection, non tender, soft, no mass Musculoskeletal: normal inspection, back normal, digits/nails normal Neurologic: normal inspection, alert, oriented x3, responsive, entertainment & media correspondent III-XII nml as tested Skin: normal inspection, normal color, no rash Medical Decision Making Diagnostic Impression: Primary Impression: Atypical chest pain ER Course Patient presented for chest pain. Differential diagnosis include is not limited to bronchitis, pneumonia, asthma, among others.Laboratoy testing was ordered due to patient's chest discomfort. Patient was given breathing treatment with improvement. She was given IV Rocephin due to some slight urinary infection. Patient's troponin was noted to be negative. Patient appears to be stable for outpatient management and further cardiac evaluation as an outpatient. Patient given medications for respiratory symptoms. She is advised to return if any worsening condition or other concerns. Labs Test 02/13/19 16:11 02/13/19 16:34 White Blood Count 11.2 K/UL (4.8-10.8) Red Blood Count 3.93 M/UL (4.20-5.40) Hemoglobin 9.7 G/DL (12.0-16.0) Hematocrit 30.1 % (37.0-47.0) Mean Corpuscular Volume 76 FL (80-99) Mean Corpuscular Hemoglobin 24.7 PG (27.0-31.0) Mean Corpuscular Hemoglobin Concent 32.4 G/DL (32.0-36.0) Red Cell Distribution Width 13.9 % (11.6-14.8) Platelet Count 405 K/UL (150-450) Mean Platelet Volume 4.7 FL (6.5-10.1) Neutrophils (%) (Auto) 69.2 % (45.0-75.0) Lymphocytes (%) (Auto) 23.3 % (20.0-45.0) Monocytes (%) (Auto) 4.0 % (1.0-10.0) Eosinophils (%) (Auto) 2.2 % (0.0-3.0) Basophils (%) (Auto) 1.2 % (0.0-2.0) D-Dimer 0.51 mg/L FEU (0.00-0.49) Sodium Level 139 MMOL/L (136-145) Potassium Level 3.8 MMOL/L (3.5-5.1) Chloride Level 103 MMOL/L (98-107) Carbon Dioxide Level 25 MMOL/L (21-32) Anion Gap 11 mmol/L (5-15) Blood Urea Nitrogen 15 mg/dL (7-18) Creatinine 0.7 MG/DL (0.55-1.30) Estimat Glomerular Filtration Rate > 60 mL/min (>60) Glucose Level 197 MG/DL (74-106) Calcium Level 8.6 MG/DL (8.5-10.1) Total Bilirubin 0.2 MG/DL (0.2-1.0) Aspartate Amino Transf (AST/SGOT) 11 U/L (15-37) Alanine Aminotransferase (ALT/SGPT) 16 U/L (12-78) Alkaline Phosphatase 102 U/L (46-116) Total Creatine Kinase 44 U/L (26-308) Creatine Kinase MB 0.7 NG/ML (0.0-3.6) Creatine Kinase MB Relative Index 1.5 Troponin I 0.000 ng/mL (0.000-0.056) Pro-B-Type Natriuretic Peptide 255 pg/mL (0-125) Total Protein 6.9 G/DL (6.4-8.2) Albumin 3.3 G/DL (3.4-5.0) Globulin 3.6 g/dL Albumin/Globulin Ratio 0.9 (1.0-2.7) Lipase 107 U/L (73-393) Urine Color Yellow Urine Appearance Cloudy Urine pH 6 (4.5-8.0) Urine Specific [place] 1.010 (1.005-1.035) Urine Protein 2+ (NEGATIVE) Urine Glucose (UA) Negative (NEGATIVE) Urine Ketones Negative (NEGATIVE) Urine Blood 5+ (NEGATIVE) Urine Nitrite Negative (NEGATIVE) Urine Bilirubin Negative (NEGATIVE) Urine Urobilinogen 1 MG/DL (0.0-1.0) Urine Leukocyte Esterase 2+ (NEGATIVE) Urine RBC 2-4 /HPF (0 - 2) Urine WBC 5-10 /HPF (0 - 2) Urine Squamous Epithelial Cells Many /LPF (NONE/OCC) Urine Bacteria Moderate /HPF (NONE) Urine HCG, Qualitative Negative (NEGATIVE) EKG Diagnostic Results Rate: normal Rhythm: NSR ST Segments: no acute changes Last Vital Signs Date Time Temp Pulse Resp B/P (MAP) Pulse Ox O2 Delivery O2 Flow Rate FiO2 02/13/19 19:50 98.8 79 18 137/60 100 Room Air 02/13/19 16:43 21 Status: improved Disposition: HOME, SELF-CARE Condition: Stable Scripts Albuterol Sulfate* (ALBUTEROL SULFATE MDI*) 8.5 Gm Hfa.aer.ad 2 PUFF INH Q4H, #1 INH 0 Refills Prov: Florentino Wesley MD 02/13/19 Cephalexin* (KEFLEX*) 500 Mg Capsule 500 MG ORAL EVERY 6 HOURS, #28 CAP Prov: Florentino Wesley MD 02/13/19 Patient Instructions: Nonspecific Chest Pain Florentino Wesley MD Feb 13, 2019 22:16
--- NOTE | 2019-02-14 19:37 | Cardiology Report ---
APPROVED REPORT EKG Measurement Heart [id number] Normal sinus rhythm Normal ECG
== END 2019-02-13 19:50 | disposition home or self-care (01) ==
LOC: EMR 17:05
DX: R07.89 Other chest pain (principal); E11.9 Type 2 diabetes mellitus without complications; I10 Essential (primary) hypertension; Z90.49 Acquired absence of other specified parts of digestive tract
CPT/HCPCS: 36415; 71045; 80053; 81003; 81025; 82550; 82553; 83690; 83880; 84484; 85025; 85379; 87086; 93005; 94640; 94664; 96365; 99284; J0696

== ENCOUNTER 2019-10-24 03:37 | Emergency (ER) | payer MEDICAID ==
[~2019-10-24] VITALS: Ht 157.5 cm; Wt 122.5 kg
[~2019-10-24 03:37] MED LIST changes: +CEPHALEXIN500 MG ORAL
[2019-10-24] MEDS ORDERED: ATORVASTATIN CA20 MG ORAL (03:53)
[2019-10-24] MEDS ORDERED: GLIPIZIDE5 MG ORAL (03:53)
[2019-10-24] MEDS ORDERED: HYDRALAZINE HCL50 MG ORAL (03:53)
[2019-10-24 03:55] VITALS: BP 174/92
--- NOTE | 2019-10-24 03:55 | NUR ---
ED Nurse Note: Patient walked in to ED from home c/o SOB x today at 0100. As per patient, it woke up from her sleep. Not in any distress, 98% RA. Afebrile. Denies pain. Pt placed on workers compensation claims specialist. Family members at bedside.
--- NOTE | 2019-10-24 04:11 | NUR ---
ED Nurse Note: RT at bedside for breathing tx.
[2019-10-24] MEDS: Albuterol/Ipratropium 3ml neb HHN SCH ×3 (04:21→04:34)
[2019-10-24] MEDS ORDERED: ALBUTEROL SULF8.5 GM INH (05:07)
[2019-10-24] MEDS ORDERED: PREDNISONE20 MG ORAL (05:07)
[2019-10-24 05:17] VITALS: BP 174/92
--- NOTE | 2019-10-24 05:17 | NUR ---
ED Nurse Note: Pt cleared by ERMD for discharge. DC instructions was given and explained to pt and verbalized understanding of teachings. Prescription is sent electronically to the pharmacy of [facility]. All medical deviecs such as ID band removed. Pt is AAO x4, ambulatory and left with all personal belongings. Accompanied by her daughter and son.
--- NOTE | 2019-10-24 06:18 | Emergency Room Report ---
History of Present Illness General Chief Complaint: Dyspnea/Respdistress Source: Patient Present Illness HPI 49-year-old female presents ED for evaluation of shortness of breath. Woke her up from sleep. Notes chest tightness. Denies fevers or chills. Denies chest pain. Denies cough. No other aggravating relieving factors. Denies any other associated symptoms Allergies: Coded Allergies: No Known Allergies (Unverified , 12/25/18) Patient History Past Medical History: DM, HTN Past Surgical History: appy Pertinent Family History: none Social History: Denies: smoking, alcohol use, drug use Now: No Immunizations: UTD Reviewed Nursing Documentation: PMH: Agreed; PSxH: Agreed Nursing Documentation-PMH Past Medical History: No History, Except For Hx Hypertension: Yes Hx Diabetes: Yes Hx Gastrointestinal Problems: Yes - APPENDECTOMY,January Review of Systems All Other Systems: negative except mentioned in HPI Physical Exam Vital Signs Date Time Temp Pulse Resp B/P (MAP) Pulse Ox O2 Delivery O2 Flow Rate FiO2 10/24/19 03:49 98.1 90 16 174/92 (119) 98 Room Air 10/24/19 04:21 21 Sp02 EP Interpretation: reviewed, normal General Appearance: no apparent distress, alert, GCS 15, non-toxic, obese Head: normocephalic, atraumatic Eyes: bilateral eye normal inspection, bilateral eye PERRL ENT: hearing grossly normal, normal pharynx, no angioedema, normal voice Neck: full range of motion, supple/symm/no masses Respiratory: chest non-tender, decreased breath sounds, speaking full sentences , wheezing Cardiovascular #1: regular rate, rhythm, no edema Cardiovascular #2: 2+ carotid (R), 2+ carotid (L), 2+ radial (R), 2+ radial (L) , 2+ dorsalis pedis (R), 2+ dorsalis pedis (L) Gastrointestinal: normal bowel sounds, non tender, soft, non-distended, no guarding, no rebound Rectal: deferred Genitourinary: normal inspection, no CVA tenderness Musculoskeletal: back normal, normal range of motion, gait/station normal, non- tender Neurologic: alert, motor strength/tone normal, oriented x3, sensory intact, responsive, speech normal Psychiatric: judgement/insight normal, memory normal, mood/affect normal, no suicidal/homicidal ideation Reflexes: 3+ bicep (R), 3+ bicep (L), 3+ tricep (R), 3+ tricep (L), 3+ knee (R) , 3+ knee (L) Skin: no rash Lymphatic: no adenopathy Medical Decision Making Diagnostic Impression: Primary Impression: Bronchitis ER Course Hospital Course 49-year-old female presents to ED complaining of SOB, wheezing. Differential diagnoses include: URI, bronchitis, asthma/COPD, pneumonia Clinical course Patient placed on stretcher. After initial history and physical I ordered nebulizer treatment. Upon reassessment patient states she feels better. Improved breath sounds bilaterally. I discussed findings with patient and family. Patient has been here multiple times for similar presentations. Has had work-ups including labs and EKG which have been unremarkable. I believe there is an anxiety component contributing to her symptoms. Safe for discharge for close outpatient follow-up Diagnosis - bronchitis Stable and discharged home with prescriptions for Rx albuterol, prednisone. Instructed to followup with PMD. Return to ED if symptoms recur or worsen Last Vital Signs Date Time Temp Pulse Resp B/P (MAP) Pulse Ox O2 Delivery O2 Flow Rate FiO2 10/24/19 05:17 98.1 90 18 174/92 100 Room Air 21 Status: improved Disposition: HOME, SELF-CARE Condition: Stable Scripts Prednisone* (PREDNISONE*) 20 Mg Tablet 40 MG ORAL DAILY, #10 TAB Prov: Amish Elizabeth MD 10/24/19 Albuterol Sulfate* (ALBUTEROL SULFATE MDI*) 8.5 Gm Hfa.aer.ad 2 PUFF INH Q6H, #1 EA 0 Refills Prov: Amish Elizabeth MD 10/24/19 Referrals: [facility] (PCP) Patient Instructions: Acute Bronchitis, [id number] Amish Elizabeth MD Oct 24, 2019 06:18
== END 2019-10-24 05:17 | disposition home or self-care (01) ==
LOC: EMR 04:09
DX: J40 Bronchitis, not specified as acute or chronic (principal); E11.9 Type 2 diabetes mellitus without complications; I10 Essential (primary) hypertension; Z98.890 Other specified postprocedural states
CPT/HCPCS: 99283; J7620

== ENCOUNTER 2020-01-23 14:03 | Emergency (ER) | payer MEDICAID ==
[~2020-01-23] VITALS: Ht 134.6 cm; Wt 127.0 kg
[~2020-01-23 14:03] MED LIST changes: +ATORVASTATIN CA20 MG ORAL; +GLIPIZIDE5 MG ORAL; +HYDRALAZINE HCL50 MG ORAL; +PREDNISONE20 MG ORAL
--- NOTE | 2020-01-23 14:27 | Emergency Room Report ---
History of Present Illness General Chief Complaint: Pain Source: Patient Present Illness HPI Patient presents with complaints of bilateral knee pain reports that she is been having increased pain when trying to stand She has been having this problem for several years She is requesting something for pain She is not aware of the specific source of the pain of her knees reports that she has been telling her physicians however nothing is being done denies any fevers or chills denies any acute fall or acute trauma Pain is localized to bilateral knee denies any calf pain denies any pelvic pain denies any fevers Allergies: Coded Allergies: No Known Allergies (Unverified , 12/25/18) COVID-19 Screening Contact w/high risk pt: No Recent Travel to affected area: No Experienced COVID-19 symptoms?: No COVID-19 Testing performed PEDIATRIC CRITICAL CARE NURSE: No Patient History Past Medical History: see triage record Last Menstrual Period: na Now: No Reviewed Nursing Documentation: PMH: Agreed; PSxH: Agreed Nursing Documentation-PMH Past Medical History: No History, Except For Hx Hypertension: Yes Hx Diabetes: Yes Hx Gastrointestinal Problems: Yes - APPENDECTOMY,January Review of Systems All Other Systems: negative except mentioned in HPI Physical Exam Vital Signs Date Time Temp Pulse Resp B/P (MAP) Pulse Ox O2 Delivery O2 Flow Rate FiO2 30/20 14:17 99.1 88 19 150/81 (104) 98 Room Air Sp02 EP Interpretation: reviewed, normal General Appearance: no apparent distress Head: normocephalic, atraumatic Eyes: bilateral eye PERRL, bilateral eye EOMI ENT: hearing grossly normal, EOM grossly intact Neck: supple Respiratory: lungs clear, no retraction, no accessory muscle use Cardiovascular #1: regular rate, rhythm Gastrointestinal: non tender, soft Musculoskeletal: other - Patient points to bilateral knee for the discomfort there is no obvious effusion no calf tenderness is reproduced patient is able to flex and extend she has difficulty standing and bearing weight secondary to pain Neurologic: alert, oriented x3 Psychiatric: normal inspection Skin: no rash Lymphatic: no adenopathy Medical Decision Making Diagnostic Impression: Primary Impression: Arthralgia Additional Impression: Hyperglycemia ER Course Multiple differentials including but not limited to central process, arthralgia , infectious entertained Patient's glucose level is elevated on discussion with family She does not have a machine for checking her glucose Family also reports that the patient has had chronic bilateral knee pain and they are not receiving significant information from outside resources At this time I do not see any emergent process requiring imaging patient is now ambulatory and feels significantly improved Recommended for close outpatient Accu-Cheks and close follow with primary physician patient will return with any worrisome concerns Labs Test 01/23/20 15:15 White Blood Count 9.0 K/UL (4.8-10.8) Red Blood Count 4.41 M/UL (4.20-5.40) Hemoglobin 11.9 G/DL (12.0-16.0) Hematocrit 38.1 % (37.0-47.0) Mean Corpuscular Volume 86 FL (80-99) Mean Corpuscular Hemoglobin 27.1 PG (27.0-31.0) Mean Corpuscular Hemoglobin Concent 31.3 G/DL (32.0-36.0) Red Cell Distribution Width 16.1 % (11.6-14.8) Platelet Count 305 K/UL (150-450) Mean Platelet Volume 6.7 FL (6.5-10.1) Neutrophils (%) (Auto) 69.6 % (45.0-75.0) Lymphocytes (%) (Auto) 20.5 % (20.0-45.0) Monocytes (%) (Auto) 7.9 % (1.0-10.0) Eosinophils (%) (Auto) 1.4 % (0.0-3.0) Basophils (%) (Auto) 0.6 % (0.0-2.0) Sodium Level 136 MMOL/L (136-145) Potassium Level 4.1 MMOL/L (3.5-5.1) Chloride Level 100 MMOL/L (98-107) Carbon Dioxide Level 25 MMOL/L (21-32) Anion Gap 11 mmol/L (5-15) Blood Urea Nitrogen 13 mg/dL (7-18) Creatinine 0.9 MG/DL (0.55-1.30) Estimat Glomerular Filtration Rate > 60 mL/min (>60) Glucose Level 389 MG/DL (74-106) Calcium Level 9.0 MG/DL (8.5-10.1) Last Vital Signs Date Time Temp Pulse Resp B/P (MAP) Pulse Ox O2 Delivery O2 Flow Rate FiO2 01/23/20 14:17 99.1 88 19 150/81 (104) 98 Room Air Status: improved Disposition: HOME, SELF-CARE Condition: Improved Scripts [accucheck machine] No Conflict Check 1 Prov: Sara Pelayo DO 01/23/20 Tramadol Hcl* (ULTRAM*) 50 Mg Tablet 50 MG ORAL Q8HR PRN for For Pain, #15 TAB 0 Refills Prov: Sara Pelayo DO 01/23/20 Additional Instructions: Patient is provided with the discharge instructions notified to follow up with primary doctor in the next 2-3 days otherwise return to the er with any worsening symptoms. Please note that this report is being documented using [employer] technology. This can lead to erroneous entry secondary to incorrect interpretation by the dictating instrument. Sara Pelayo DO January 23, 2020 14:27
[2020-01-23] MEDS ORDERED: Ketorolac 60mg Inj IM ONE (14:30)
[2020-01-23 15:36] LABS: BASOPHILS % (AUTO) 0.6 % (0.0-2.0); EOSINOPHILS % (AUTO) 1.4 % (0.0-3.0); HEMATOCRIT 38.1 % (37.0-47.0); HEMOGLOBIN 11.9 G/DL (12.0-16.0); LYMPHOCYTES % (AUTO) 20.5 % (20.0-45.0); MEAN CORPUSCULAR VOLUME 86 FL (80-99); MONOCYTES % (AUTO) 7.9 % (1.0-10.0); NEUTROPHILS % (AUTO) 69.6 % (45.0-75.0); PLATELET COUNT 305 K/UL (150-450); RED BLOOD COUNT 4.41 M/UL (4.20-5.40); RED CELL DISTRIBUTION WIDTH 16.1 % (11.6-14.8)
[2020-01-23 16:07] VITALS: BP 144/81
[2020-01-23 16:13] LABS: ANION GAP 11 mmol/L (5-15); BLOOD UREA NITROGEN 13 mg/dL (7-18); CARBON DIOXIDE 25 MMOL/L (21-32); CHLORIDE 100 MMOL/L (98-107); CREATININE 0.9 MG/DL (0.55-1.30); POTASSIUM 4.1 MMOL/L (3.5-5.1); SODIUM 136 MMOL/L (136-145)
[2020-01-23] MEDS ORDERED: Insulin Human Regular 100units/ml 3ml SUBQ ONE (16:30)
[2020-01-23] MEDS ORDERED: TRAMADOL HCL50 MG ORAL (16:41)
[2020-01-23] MEDS ORDERED: ACCUCHECK MACHINE (17:06)
[2020-01-23 17:26] VITALS: BP 115/75
== END 2020-01-23 17:35 | disposition home or self-care (01) ==
LOC: EMR 14:48
DX: M25.562 Pain in left knee (principal); M25.561 Pain in right knee; E11.65 Type 2 diabetes mellitus with hyperglycemia; I10 Essential (primary) hypertension; Z90.89 Acquired absence of other organs
CPT/HCPCS: 36415; 80048; 82962; 85025; 96372; J1815; Z7502; 99284